=== PATIENT | male | born 1980 | race Hispanic/Latino ===

== ENCOUNTER 2021-01-14 05:29 | Emergency (ER) | payer OTHER ==
[2021-01-14 05:50] LABS: BASOPHILS % (AUTO) 0.4 % (0.0-5.0); HEMATOCRIT 42.6 % (42-54); LYMPHOCYTES % (AUTO) 32.7 % (21.0-51.0); MEAN CORPUSCULAR HEMOGLOBIN 34.2 pg (27.0-33.0); MEAN CORPUSCULAR HGB CONC 35.7 g/dL (32.0-36.0); MEAN CORPUSCULAR VOLUME 95.9 fL (79-99); NEUTROPHILS % (AUTO) 55.7 % (40.0-77.0); PLATELET COUNT (AUTO) 39 K/uL (130-400); RED BLOOD CELL COUNT(AUTO) 4.44 MIL/uL (4.50-6.20); RED CELL DISTRIBUTION WIDTH 12.9 % (11.0-15.5); WHITE BLOOD COUNT (AUTO) 4.7 K/uL (4.8-10.8)
[2021-01-14] MEDS ORDERED: ASPIRIN 325 MG TABLET ONE (06:00)
[2021-01-14 06:03] LABS: INR 1.36 (0.85-1.15); PROTHROMBIN TIME 14.4 SEC (9.6-11.6)
[2021-01-14 06:05] LABS: PARTIAL THROMBOPLASTIN TIME 31.3 SEC (26.3-35.5)
[2021-01-14 06:11] LABS: ALBUMIN 3.6 g/dL (3.5-5.0); BILIRUBIN,TOTAL 2.7 mg/dL (0.2-1.0); CREATININE 0.9 mg/dL (0.5-1.5); POTASSIUM 3.4 mmol/L (3.5-5.1); TOTAL PROTEIN, SERUM 9.1 g/dL (6.0-8.3)
[2021-01-14 06:19] LABS: APPEARANCE,URINE Clear (CLEAR); BILIRUBIN,URINE Negative (NEGATIVE); COLOR,URINE Yellow (YELLOW); GLUCOSE, URINE (UA) Negative (NEGATIVE); KETONES,URINE Negative (NEGATIVE); LEUKOCYTE ESTERASE ,URINE Negative (NEGATIVE); NITRATE,URINE Negative (NEGATIVE); OCCULT BLOOD,URINE Negative (NEGATIVE); PROTEIN,URINE Negative (NEGATIVE)
[2021-01-14 06:27] LABS: AMPHET/METH SCREEN,URINE NEGATIVE (NEGATIVE); BARBITURATE SCREEN, URINE NEGATIVE (NEGATIVE); BENZODIAZEPINES SCREEN,URINE NEGATIVE (NEGATIVE); CANNABINOID SCREEN,URINE NEGATIVE (NEGATIVE); COCAINE SCREEN,URINE POSITIVE (NEGATIVE); OPIATE SCREEN,URINE NEGATIVE (NEGATIVE); PHENCYCLIDINE SCREEN,URINE NEGATIVE (NEGATIVE)
== END 2021-01-14 07:20 | disposition home or self-care (01) ==
LOC: EDH 05:29
DX: R07.89 Other chest pain (principal); F14.10 Cocaine abuse, uncomplicated; F10.10 Alcohol abuse, uncomplicated; Z72.0 Tobacco use
CPT/HCPCS: 36415; 71045; 80053; 80305; 81003; 82550; 83690; 84484; 85025; 85610; 85730; 93005

== ENCOUNTER 2022-04-26 02:18 | Inpatient (IN) | payer OTHER ==
[~2022-04-26] VITALS: Ht 162.6 cm; Wt 82.5 kg
[2022-04-26 02:46] LABS: BASOPHILS % (AUTO) 0.4 % (0.0-5.0); EOSINOPHILS % (AUTO) 3.7 % (0.0-8.0); HEMATOCRIT 33.7 % (42-54); LYMPHOCYTES % (AUTO) 22.4 % (21.0-51.0); MEAN CORPUSCULAR HEMOGLOBIN 35.1 pg (27.0-33.0); MEAN CORPUSCULAR HGB CONC 34.7 g/dL (32.0-36.0); MEAN CORPUSCULAR VOLUME 101.2 fL (79-99); MONOCYTES % (AUTO) 7.9 % (3.0-13.0); RED BLOOD CELL COUNT(AUTO) 3.33 MIL/uL (4.50-6.20); RED CELL DISTRIBUTION WIDTH 14.6 % (11.0-15.5); WHITE BLOOD COUNT (AUTO) 5.4 K/uL (4.8-10.8)
[2022-04-26 02:47] LABS: APPEARANCE,URINE CLEAR (CLEAR); BILIRUBIN,URINE NEGATIVE (NEGATIVE); COLOR,URINE YELLOW (YELLOW); GLUCOSE, URINE (UA) NEGATIVE (NEGATIVE); KETONES,URINE NEGATIVE (NEGATIVE); LEUKOCYTE ESTERASE ,URINE NEGATIVE (NEGATIVE); NITRATE,URINE NEGATIVE (NEGATIVE); OCCULT BLOOD,URINE MODERATE (NEGATIVE); PH,URINE 6.5 (5.0-8.0); PROTEIN,URINE NEGATIVE (NEGATIVE); UROBILINOGEN,URINE >=8.0 mg/dL (0.2-1.0)
[2022-04-26 02:55] LABS: CREATININE 0.9 mg/dL (0.5-1.5); POTASSIUM 3.4 mmol/L (3.5-5.1)
[2022-04-26 02:57] LABS: INR 1.73 (0.85-1.15); PROTHROMBIN TIME 18.3 SEC (9.6-11.6)
[2022-04-26 03:00] LABS: ALBUMIN 2.2 g/dL (3.5-5.0); TOTAL PROTEIN, SERUM 7.6 g/dL (6.0-8.3)
[2022-04-26 03:02] LABS: BACTERIA,URINE None Seen /HPF (None Seen)
[2022-04-26 03:06] LABS: B-TYPE NATRIURETIC PEPTIDE 30 pg/mL (0-100)
[2022-04-26 03:10] LABS: PLATELET MORPHOLOGY COMMENT DECREASED
[2022-04-26 03:11] LABS: PLATELET COUNT (AUTO) 60 K/uL (130-400)
[2022-04-26] MEDS ORDERED: FUROSEMIDE 40MG VIAL IV ONE (03:30)
[2022-04-26] MEDS ORDERED: THIAMINE HCL 100 MG/ML 2ML VIAL IVP SCH (03:30)
[2022-04-26] MEDS ORDERED: LACTULOSE 20 GM/30 ML UDCUP PO ONE (03:30)
[2022-04-26] MEDS: LACTULOSE 20 GM/30 ML UDCUP PO SCH ×4 (04:49→22:20)
[2022-04-26] MEDS: KCL 20 MEQ ERTAB PO PRN (04:55)
[2022-04-26] MEDS ORDERED: LITHIUM CARBONATE 150 MG CAPSULE PO SCH ×2 (05:00→08:00)
[2022-04-26] MEDS ORDERED: FUROSEMIDE 40MG VIAL IV SCH (05:00)
[2022-04-26] MEDS ORDERED: POTASSIUM CHLORIDE 20MEQ/100ML 100 ML IV PRN (05:00)
[2022-04-26] MEDS ORDERED: ONDANSETRON 4MG INJ IV PRN (05:00)
[2022-04-26] MEDS ORDERED: POTASSIUM CHLORIDE 10% ELIXIR 20 MEQ/15 ML UDCUP PO PRN (05:00)
[2022-04-26] MEDS ORDERED: LIDOCAINE HCL-MPF 1% 2ML VIAL IV PRN (05:00)
[2022-04-26] MEDS ORDERED: PHARMACY COMMUNICATION MISC PRN (05:00)
[2022-04-26] MEDS ORDERED: DIAZEPAM 5 MG/ML 2 ML SYG IV PRN (05:00)
[2022-04-26 05:33] LABS: MAGNESIUM 2.1 mg/dL (1.80-2.40); PHOSPHORUS 2.2 mg/dL (2.5-4.9)
[2022-04-26] MEDS: FAMOTIDINE 20MG VIAL IV SCH ×2 (08:07→20:11)
[2022-04-26 13:10] VITALS: BP 133/70
[2022-04-26] MEDS: FUROSEMIDE 40MG VIAL IV SCH (15:34)
[2022-04-26 16:00] VITALS: BP_SYST 104; BP_SYST 146; BP_DIAS 65; BP_DIAS 85
[2022-04-26 20:00] VITALS: BP 120/73
[2022-04-27] VITALS: BP 121/61
[2022-04-27 04:00] VITALS: BP 122/64
[2022-04-27 04:29] LABS: BASOPHILS % (AUTO) 0.7 % (0.0-5.0); EOSINOPHILS % (AUTO) 4.3 % (0.0-8.0); LYMPHOCYTES % (AUTO) 28.8 % (21.0-51.0); MEAN CORPUSCULAR HGB CONC 34.5 g/dL (32.0-36.0); MEAN CORPUSCULAR VOLUME 101.3 fL (79-99); MONOCYTES % (AUTO) 9.4 % (3.0-13.0); NEUTROPHILS % (AUTO) 56.5 % (40.0-77.0); PLATELET COUNT (AUTO) 22 K/uL (130-400); RED BLOOD CELL COUNT(AUTO) 3.06 MIL/uL (4.50-6.20); RED CELL DISTRIBUTION WIDTH 14.4 % (11.0-15.5)
[2022-04-27] MEDS: FUROSEMIDE 40MG VIAL IV SCH (04:32)
[2022-04-27] MEDS: LACTULOSE 20 GM/30 ML UDCUP PO SCH ×2 (04:32→11:16)
[2022-04-27 04:38] LABS: CREATININE 0.9 mg/dL (0.5-1.5); POTASSIUM 3.1 mmol/L (3.5-5.1)
[2022-04-27] MEDS: KCL 20 MEQ ERTAB PO PRN ×3 (05:15→08:56)
[2022-04-27 07:59] VITALS: BP 113/73
[2022-04-27] MEDS ORDERED: FAMOTIDINE 20MG TAB PO SCH (09:00)
[2022-04-27] MEDS ORDERED: SPIRONOLACTONE 25 MG TAB PO SCH (09:00)
[2022-04-27] MEDS ORDERED: FUROSEMIDE 40 MG TABLET PO SCH (09:00)
[2022-04-27 11:48] VITALS: BP 122/69
[2022-04-27] MEDS ORDERED: SPIR25TA6 PO (14:40)
[2022-04-27] MEDS ORDERED: LACT PO (14:40)
[2022-04-27] MEDS ORDERED: FURO40TA7 PO (14:40)
== END 2022-04-27 16:45 | disposition home or self-care (01) | DRG 433 ==
LOC: EDH 02:18 → EDHIP 02:19 → INTOOBSV 02:19 → OBSVTOIN 02:19 → 4CH 12:14
PROVIDERS: ADMIT Internal Medicine; ATTEND Internal Medicine
DX: K70.31 Alcoholic cirrhosis of liver with ascites (principal); D68.9 Coagulation defect, unspecified; K70.40 Alcoholic hepatic failure without coma; F10.20 Alcohol dependence, uncomplicated; D69.6 Thrombocytopenia, unspecified; E87.6 Hypokalemia; E88.09 Other disorders of plasma-protein metabolism, not elsewhere classified; F17.210 Nicotine dependence, cigarettes, uncomplicated
CPT/HCPCS: 36415; 71045; 76700; 80048; 80053; 81001; 82140; 83735; 83880; 84100; 84484; 85025; 85610; 86850; 86900; 86901; 93005; G0378; J1940; J3411; J3490

== ENCOUNTER 2022-05-03 13:29 | Emergency (ER) | payer MEDICAID, OTHER ==
[~2022-05-03] VITALS: Ht 162.6 cm; Wt 82.1 kg
[~2022-05-03 13:29] MED LIST: FURO40TA7 PO; LACT PO; SPIR25TA6 PO
[2022-05-03] MEDS ORDERED: MORPHINE 2 MG SYG IVP ONE (14:00)
[2022-05-03] MEDS ORDERED: ONDANSETRON 4MG INJ IVP ONE (14:00)
[2022-05-03] MEDS ORDERED: 0.9%NACL 1000ML 1,000 ML IV SCH (14:00)
[2022-05-03] MEDS ORDERED: ACETAMINOPHEN 500 MG TABLET PO ONE (14:00)
[2022-05-03 14:05] LABS: BASOPHILS % (AUTO) 0.2 % (0.0-5.0); EOSINOPHILS % (AUTO) 0.1 % (0.0-8.0); HEMATOCRIT 38.1 % (42-54); LYMPHOCYTES % (AUTO) 7.6 % (21.0-51.0); MEAN CORPUSCULAR HEMOGLOBIN 35.1 pg (27.0-33.0); MEAN CORPUSCULAR HGB CONC 33.9 g/dL (32.0-36.0); MEAN CORPUSCULAR VOLUME 103.5 fL (79-99); MONOCYTES % (AUTO) 4.4 % (3.0-13.0); NEUTROPHILS % (AUTO) 86.7 % (40.0-77.0); PLATELET COUNT (AUTO) 35 K/uL (130-400); RED BLOOD CELL COUNT(AUTO) 3.68 MIL/uL (4.50-6.20); RED CELL DISTRIBUTION WIDTH 14.2 % (11.0-15.5); WHITE BLOOD COUNT (AUTO) 8.1 K/uL (4.8-10.8)
[2022-05-03 14:15] LABS: CREATININE 1.3 mg/dL (0.5-1.5); POTASSIUM 4.8 mmol/L (3.5-5.1)
[2022-05-03 14:20] LABS: ALBUMIN 2.2 g/dL (3.5-5.0); TOTAL PROTEIN, SERUM 8.1 g/dL (6.0-8.3)
[2022-05-03 14:50] LABS: APPEARANCE,URINE SL CLOUDY (CLEAR); BILIRUBIN,URINE MODERATE (NEGATIVE); COLOR,URINE DARK YELLOW (YELLOW); GLUCOSE, URINE (UA) 100 mg/dL (NEGATIVE); KETONES,URINE 5 mg/dL (NEGATIVE); LEUKOCYTE ESTERASE ,URINE TRACE (NEGATIVE); NITRATE,URINE POSITIVE (NEGATIVE); OCCULT BLOOD,URINE LARGE (NEGATIVE); PH,URINE 5.5 (5.0-8.0); PROTEIN,URINE 100 mg/dL (NEGATIVE)
[2022-05-03 14:58] LABS: PLATELET MORPHOLOGY COMMENT MARKED DECREASE
[2022-05-03 15:09] LABS: BACTERIA,URINE Moderate /HPF (None Seen); RBC,URINE 0-1 /HPF (0-1)
[2022-05-03 15:19] VITALS: BP 132/78
[2022-05-03] MEDS ORDERED: ONDA4TAB10 PO (15:19)
[2022-05-03] MEDS ORDERED: CEPH500B PO (15:19)
[2022-05-03] MEDS ORDERED: DICY20TA2 PO (15:19)
[2022-05-03] MEDS ORDERED: CEFTRIAXONE 1G VIAL IVP ONE (15:30)
== END 2022-05-03 15:40 | disposition home or self-care (01) ==
LOC: EDH 13:29
DX: N39.0 Urinary tract infection, site not specified (principal); K52.9 Noninfective gastroenteritis and colitis, unspecified; K74.60 Unspecified cirrhosis of liver
CPT/HCPCS: 99285; 74176; 96374; 71045; 96375; 84484; 80053; 83690; 85025; 87088; 81001; 36415; J7030; J0696; J2405

== ENCOUNTER 2022-06-03 00:09 | Emergency (ER) | payer OTHER ==
[~2022-06-03] VITALS: Ht 170.2 cm; Wt 92.5 kg
[~2022-06-03 00:09] MED LIST changes: +CEPH500B PO; +DICY20TA2 PO; +ONDA4TAB10 PO
[2022-06-03 00:58] LABS: BASOPHILS % (AUTO) 0.7 % (0.0-5.0); EOSINOPHILS % (AUTO) 3.6 % (0.0-8.0); HEMATOCRIT 28.3 % (42-54); LYMPHOCYTES % (AUTO) 24.5 % (21.0-51.0); MEAN CORPUSCULAR HEMOGLOBIN 34.6 pg (27.0-33.0); MEAN CORPUSCULAR HGB CONC 34.3 g/dL (32.0-36.0); MEAN CORPUSCULAR VOLUME 101.1 fL (79-99); MONOCYTES % (AUTO) 10.1 % (3.0-13.0); NEUTROPHILS % (AUTO) 59.3 % (40.0-77.0); PLATELET COUNT (AUTO) 34 K/uL (130-400); RED CELL DISTRIBUTION WIDTH 14.8 % (11.0-15.5); WHITE BLOOD COUNT (AUTO) 4.5 K/uL (4.8-10.8)
[2022-06-03 01:07] LABS: CREATININE 1.3 mg/dL (0.5-1.5); POTASSIUM 3.9 mmol/L (3.5-5.1)
[2022-06-03 01:09] LABS: APPEARANCE,URINE CLEAR (CLEAR); BILIRUBIN,URINE 2 mg/dL (NEGATIVE); COLOR,URINE DARK-YELLOW (YELLOW); GLUCOSE, URINE (UA) NEGATIVE (NEGATIVE); KETONES,URINE NEGATIVE (NEGATIVE); LEUKOCYTE ESTERASE ,URINE NEGATIVE Leu/uL (NEGATIVE); NITRATE,URINE NEGATIVE (NEGATIVE); OCCULT BLOOD,URINE SMALL (NEGATIVE); PH,URINE 5.5 (5.0-8.0); PROTEIN,URINE 10 mg/dL (NEGATIVE)
[2022-06-03 01:11] LABS: BACTERIA,URINE RARE /HPF (None Seen); HYALINE CASTS, URINE 26-50 /LPF (0-1 /LPF); MUCUS,URINE RARE LPF (None Seen); SQUAMOUS EPITHELIAL CELL,UR RARE /HPF (0-2)
[2022-06-03 01:11] LABS: ALBUMIN 1.8 g/dL (3.5-5.0); TOTAL PROTEIN, SERUM 6.8 g/dL (6.0-8.3)
[2022-06-03] MEDS ORDERED: FURO40TA7 PO (01:12)
[2022-06-03] MEDS ORDERED: SPIR25TA6 PO (01:12)
[2022-06-03] MEDS ORDERED: LACT10SO9 PO (01:12)
[2022-06-03 03:58] VITALS: BP 133/66
== END 2022-06-03 04:43 | disposition home or self-care (01) ==
LOC: EDH 00:09
DX: R18.8 Other ascites (principal); R17 Unspecified jaundice; Z79.899 Other long term (current) drug therapy
CPT/HCPCS: 36415; 80053; 81001; 82140; 83690; 85025

== ENCOUNTER 2022-11-02 07:27 | Emergency (ER) | payer BC, MEDICAID, OTHER ==
[~2022-11-02] VITALS: Ht 162.6 cm; Wt 88.5 kg
[~2022-11-02 07:27] MED LIST changes: -CEPH500B PO; -DICY20TA2 PO; +FURO20TA4 PO; -FURO40TA7 PO; -LACT PO; +LACT10SO9 PO; +SPIR100T5 PO; -SPIR25TA6 PO
[2022-11-02 08:19] LABS: BASOPHILS % (AUTO) 0.7 % (0.0-5.0); HEMATOCRIT 31.8 % (42-54); LYMPHOCYTES % (AUTO) 30.2 % (21.0-51.0); MEAN CORPUSCULAR HEMOGLOBIN 34.9 pg (27.0-33.0); MEAN CORPUSCULAR HGB CONC 32.4 g/dL (32.0-36.0); MEAN CORPUSCULAR VOLUME 107.8 fL (79-99); MONOCYTES % (AUTO) 7.7 % (3.0-13.0); NEUTROPHILS % (AUTO) 58.7 % (40.0-77.0); PLATELET COUNT (AUTO) 23 K/uL (130-400); RED BLOOD CELL COUNT(AUTO) 2.95 MIL/uL (4.50-6.20); RED CELL DISTRIBUTION WIDTH 15.9 % (11.0-15.5)
[2022-11-02 08:24] LABS: POTASSIUM 3.7 mmol/L (3.5-5.1)
[2022-11-02 08:26] LABS: INR 2.19 (0.85-1.15); PROTHROMBIN TIME 22.8 SEC (9.6-11.6)
[2022-11-02 08:30] LABS: APPEARANCE,URINE CLOUDY (CLEAR); BILIRUBIN,URINE 1 mg/dL (NEGATIVE); COLOR,URINE DARK-YELLOW (YELLOW); GLUCOSE, URINE (UA) NEGATIVE (NEGATIVE); KETONES,URINE NEGATIVE (NEGATIVE); LEUKOCYTE ESTERASE ,URINE NEGATIVE Leu/uL (NEGATIVE); NITRATE,URINE NEGATIVE (NEGATIVE); OCCULT BLOOD,URINE LARGE (NEGATIVE); PH,URINE 5.5 (5.0-8.0); PROTEIN,URINE 30 mg/dL (NEGATIVE); UROBILINOGEN,URINE 0.2 mg/dL (0.2-1.0)
[2022-11-02 08:31] LABS: ALBUMIN 1.8 g/dL (3.5-5.0); TOTAL PROTEIN, SERUM 7.8 g/dL (6.0-8.3)
[2022-11-02 08:38] LABS: BACTERIA,URINE RARE /HPF (None Seen); MUCUS,URINE MANY LPF (None Seen); OTHER CASTS, URINE 1 /LPF (None Seen); SQUAMOUS EPITHELIAL CELL,UR RARE /HPF (0-2)
[2022-11-02 08:39] LABS: AMPHET/METH SCREEN,URINE NEGATIVE (NEGATIVE); BARBITURATE SCREEN, URINE NEGATIVE (NEGATIVE); BENZODIAZEPINES SCREEN,URINE NEGATIVE (NEGATIVE); CANNABINOID SCREEN,URINE NEGATIVE (NEGATIVE); COCAINE SCREEN,URINE POSITIVE (NEGATIVE); OPIATE SCREEN,URINE NEGATIVE (NEGATIVE); PHENCYCLIDINE SCREEN,URINE NEGATIVE (NEGATIVE)
[2022-11-02 08:49] LABS: ALCOHOL, BLOOD 115 mg/dL (0-10)
[2022-11-02 08:56] LABS: EOSINOPHILS % (MANUAL) 1 % (1-6); LYMPHOCYTES % (MANUAL) 25 % (22-44); MAN.DIFF COMMENT-IMPRESSION MANUAL DIFFERENTIAL; MONOCYTES % (MANUAL) 5 % (2-9); SEGMENTED NEUTROPHILS % 69 % (40-70)
[2022-11-02 08:57] LABS: PLATELET MORPHOLOGY COMMENT MARKED DECREASE
[2022-11-02 08:58] LABS: ACETAMINOPHEN < 1 mcg/mL (10-29)
[2022-11-02] MEDS ORDERED: IOHEXOL 350 MG/ML 100ML INFUS..BTL IV ONE (09:29)
[2022-11-02] MEDS: MORPHINE 2 MG SYG IVP SCH (09:55)
[2022-11-02] MEDS: ONDANSETRON 4MG INJ IVP SCH (09:55)
[2022-11-02] MEDS ORDERED: CEPH500B PO (10:14)
[2022-11-02] MEDS ORDERED: OMEP40CA21 PO (10:20)
[2022-11-02] MEDS: CEFTRIAXONE 1G VIAL IVP ONE (11:05)
[2022-11-02] MEDS: LIDOCAINE HCL 2% VISCOUS 15 ML UDCUP PO ONE (11:05)
[2022-11-02] MEDS: MAG/ALUM/SIMETH 30 ML UDCUP PO ONE (11:05)
[2022-11-02 12:04] VITALS: BP 119/70
== END 2022-11-02 12:05 | disposition home or self-care (01) ==
LOC: EDH 07:27
DX: K74.60 Unspecified cirrhosis of liver (principal); N39.0 Urinary tract infection, site not specified; R10.13 Epigastric pain; F10.129 Alcohol abuse with intoxication, unspecified; F14.10 Cocaine abuse, uncomplicated; R31.9 Hematuria, unspecified; Z79.899 Other long term (current) drug therapy; Y90.5 Blood alcohol level of 100-119 mg/100 ml
CPT/HCPCS: 99284; 74177; 96374; 96375; 80053; 80305; 83690; 85025; 85610; 87088; 81001; 36415; J0696; J2405; Q9967

== ENCOUNTER 2023-02-14 11:13 | Inpatient (IN) | payer BC, OTHER ==
[~2023-02-14] VITALS: Ht 165.1 cm; Wt 100.2 kg
[~2023-02-14 11:13] MED LIST changes: +CEPH500B PO; +OMEP40CA21 PO
[2023-02-14 12:16] LABS: BASOPHILS % (AUTO) 0.3 % (0.0-5.0); EOSINOPHILS % (AUTO) 0.7 % (0.0-8.0); HEMATOCRIT 22.4 % (42-54); LYMPHOCYTES % (AUTO) 8.8 % (21.0-51.0); MEAN CORPUSCULAR HEMOGLOBIN 36.6 pg (27.0-33.0); MEAN CORPUSCULAR HGB CONC 33.5 g/dL (32.0-36.0); MEAN CORPUSCULAR VOLUME 109.3 fL (79-99); MONOCYTES % (AUTO) 4.5 % (3.0-13.0); NEUTROPHILS % (AUTO) 83.8 % (40.0-77.0); PLATELET COUNT (AUTO) 30 K/uL (130-400); RED BLOOD CELL COUNT(AUTO) 2.05 MIL/uL (4.50-6.20); WHITE BLOOD COUNT (AUTO) 6.8 K/uL (4.8-10.8)
[2023-02-14 12:22] LABS: POTASSIUM 3.2 mmol/L (3.5-5.1)
[2023-02-14 12:26] LABS: ALBUMIN 1.2 g/dL (3.5-5.0); TOTAL PROTEIN, SERUM 6.8 g/dL (6.0-8.3)
[2023-02-14] MEDS ORDERED: POTASSIUM BICARB/CIT AC 25 MEQ TABLET.EFF PO ONE (12:30)
[2023-02-14 12:51] LABS: PARTIAL THROMBOPLASTIN TIME 52.1 SEC (26.3-35.5)
[2023-02-14] MEDS ORDERED: HYDROCODONE/ACETAMINOPHEN 5/325 MG TAB PO PRN (13:30)
[2023-02-14] MEDS ORDERED: GUAIFENESIN-DM 200/20 MG 10 ML PO PRN (13:30)
[2023-02-14] MEDS ORDERED: CEFTRIAXONE 1G VIAL 2 GM in 0.9%NACL 100ML 100 ML IV SCH (13:30)
[2023-02-14] MEDS ORDERED: POTASSIUM CHLORIDE 10% ELIXIR 20 MEQ/15 ML UDCUP PO PRN (13:30)
[2023-02-14] MEDS ORDERED: ACETAMINOPHEN 325 MG TAB PO PRN (13:30)
[2023-02-14] MEDS ORDERED: LACTULOSE 20 GM/30 ML UDCUP PO PRN (13:30)
[2023-02-14] MEDS ORDERED: POTASSIUM CHLORIDE 20MEQ/100ML 100 ML IV PRN (13:30)
[2023-02-14] MEDS ORDERED: MAG/ALUM/SIMETH 30 ML UDCUP PO PRN (13:30)
[2023-02-14] MEDS ORDERED: ALBUMIN (HUMAN) 5% 250 ML IV SCH (13:30)
[2023-02-14] MEDS ORDERED: DiphenhydrAMINE HCL 50 MG/ML VIAL IV PRN (13:30)
[2023-02-14] MEDS ORDERED: ONDANSETRON 4MG INJ IV PRN (13:30)
[2023-02-14] MEDS ORDERED: MAGNESIUM 2GM PREMIX 50ML 50 ML IV PRN (13:30)
[2023-02-14] MEDS ORDERED: NITROGLYCERIN 0.4 MG SL TAB SL PRN (13:30)
[2023-02-14 13:49] LABS: INR 3.63 (0.85-1.15); PROTHROMBIN TIME 36.8 SEC (9.6-11.6)
[2023-02-14 13:56] LABS: PLATELET MORPHOLOGY COMMENT MARKED DECREASE
[2023-02-14] MEDS: HYDROMORPHONE 1 MG INJ IV PRN ×2 (14:31→18:45)
[2023-02-14 14:46] LABS: APPEARANCE,URINE CLOUDY (CLEAR); BILIRUBIN,URINE 6 mg/dL (NEGATIVE); COLOR,URINE DARK-YELLOW (YELLOW); GLUCOSE, URINE (UA) NEGATIVE (NEGATIVE); KETONES,URINE NEGATIVE (NEGATIVE); LEUKOCYTE ESTERASE ,URINE 250 Leu/uL (NEGATIVE); NITRATE,URINE NEGATIVE (NEGATIVE); OCCULT BLOOD,URINE LARGE (NEGATIVE); PH,URINE 5.5 (5.0-8.0); PROTEIN,URINE 20 mg/dL (NEGATIVE); UROBILINOGEN,URINE 3 mg/dL (0.2-1.0)
[2023-02-14 14:53] LABS: AMPHET/METH SCREEN,URINE NEGATIVE (NEGATIVE); BARBITURATE SCREEN, URINE NEGATIVE (NEGATIVE); BENZODIAZEPINES SCREEN,URINE NEGATIVE (NEGATIVE); CANNABINOID SCREEN,URINE NEGATIVE (NEGATIVE); COCAINE SCREEN,URINE POSITIVE (NEGATIVE); OPIATE SCREEN,URINE NEGATIVE (NEGATIVE); PHENCYCLIDINE SCREEN,URINE NEGATIVE (NEGATIVE)
[2023-02-14 15:11] LABS: BACTERIA,URINE MOD /HPF (None Seen); MUCUS,URINE RARE LPF (None Seen); OTHER CASTS, URINE 5 /LPF (None Seen); SQUAMOUS EPITHELIAL CELL,UR RARE /HPF (0-2); WBC,URINE 26-50 /HPF (0-1); YEAST,URINE BUDDING RARE /HPF (None Seen)
[2023-02-14] MEDS: LACTULOSE 20 GM/30 ML UDCUP PO SCH ×2 (15:19→21:15)
[2023-02-14] MEDS: SPIRONOLACTONE 25 MG TAB PO SCH ×2 (15:20→21:15)
[2023-02-14] MEDS ORDERED: CEFTRIAXONE 2GM VIAL IVPB SCH (15:30)
[2023-02-14] MEDS ORDERED: 0.9% NACL 500ML IV.SOLN 500 ML IV ONE (17:30)
[2023-02-14] MEDS: KCL 20 MEQ ERTAB PO PRN (21:15)
[2023-02-15] MEDS ORDERED: ZOSYN 3.375GM+NS 50ML 50 ML IVPB ONE (03:39)
[2023-02-15] MEDS: ZOSYN 3.375GM +NS 50ML IVPB SCH ×3 (03:55→22:21)
[2023-02-15] MEDS: HYDROMORPHONE 1 MG INJ IV PRN ×2 (03:56→09:31)
[2023-02-15 07:54] LABS: BASOPHILS % (AUTO) 0.2 % (0.0-5.0); LYMPHOCYTES % (AUTO) 9.5 % (21.0-51.0); MEAN CORPUSCULAR HEMOGLOBIN 36.7 pg (27.0-33.0); MEAN CORPUSCULAR HGB CONC 33.5 g/dL (32.0-36.0); MEAN CORPUSCULAR VOLUME 109.6 fL (79-99); MONOCYTES % (AUTO) 8.2 % (3.0-13.0); NEUTROPHILS % (AUTO) 77.1 % (40.0-77.0); NUCLEATED RED BLOOD CELLS 0.4 % (0.0-0.19); PLATELET COUNT (AUTO) 28 K/uL (130-400); RED BLOOD CELL COUNT(AUTO) 1.88 MIL/uL (4.50-6.20); RED CELL DISTRIBUTION WIDTH 16.1 % (11.0-15.5); WHITE BLOOD COUNT (AUTO) 5.6 K/uL (4.8-10.8)
[2023-02-15 08:12] LABS: HEMATOCRIT 20.6 % (42-54)
[2023-02-15 08:24] LABS: % IRON SATURATION 109.4 % (30-44)
[2023-02-15 08:26] LABS: ALBUMIN 1.3 g/dL (3.5-5.0); CREATININE 2.1 mg/dL (0.5-1.5); MAGNESIUM 1.7 mg/dL (1.80-2.40); POTASSIUM 3.4 mmol/L (3.5-5.1); THYROID STIMULATING HORMONE 6.42 uIU/mL (0.36-3.74); TOTAL PROTEIN, SERUM 6.2 g/dL (6.0-8.3)
[2023-02-15] MEDS: LACTULOSE 20 GM/30 ML UDCUP PO SCH ×2 (09:00→20:43)
[2023-02-15] MEDS: FUROSEMIDE 40 MG TABLET PO SCH (09:00)
[2023-02-15] MEDS: SPIRONOLACTONE 25 MG TAB PO SCH ×2 (09:00→20:43)
[2023-02-15] MEDS: MEROPENEM 1 GM VIAL IVPB SCH ×2 (09:04→20:43)
[2023-02-15] MEDS: KCL 20 MEQ ERTAB PO PRN ×2 (09:31→10:56)
[2023-02-15] MEDS: HYDROCODONE/ACETAMINOPHEN 5/325 MG TAB PO PRN ×2 (18:08→22:22)
[2023-02-15 21:01] LABS: HEMATOCRIT 20.5 % (42-54)
[2023-02-15 21:10] VITALS: BP 118/60
[2023-02-15 21:14] LABS: MAGNESIUM 1.8 mg/dL (1.80-2.40); POTASSIUM 3.4 mmol/L (3.5-5.1)
[2023-02-15 23:43] VITALS: BP 111/57
[2023-02-16 04:26] VITALS: BP 107/50
[2023-02-16] MEDS: ZOSYN 3.375GM +NS 50ML IVPB SCH (04:52)
[2023-02-16 06:16] LABS: BASOPHILS % (AUTO) 0.6 % (0.0-5.0); EOSINOPHILS % (AUTO) 3.4 % (0.0-8.0); HEMATOCRIT 22.4 % (42-54); LYMPHOCYTES % (AUTO) 7.8 % (21.0-51.0); MEAN CORPUSCULAR HEMOGLOBIN 35.4 pg (27.0-33.0); MEAN CORPUSCULAR HGB CONC 33.5 g/dL (32.0-36.0); MEAN CORPUSCULAR VOLUME 105.7 fL (79-99); MONOCYTES % (AUTO) 10.8 % (3.0-13.0); NEUTROPHILS % (AUTO) 71.3 % (40.0-77.0); NUCLEATED RED BLOOD CELLS 0.6 % (0.0-0.19); PLATELET COUNT (AUTO) 31 K/uL (130-400); RED BLOOD CELL COUNT(AUTO) 2.12 MIL/uL (4.50-6.20); RED CELL DISTRIBUTION WIDTH 20.8 % (11.0-15.5); WHITE BLOOD COUNT (AUTO) 5.3 K/uL (4.8-10.8)
[2023-02-16 06:34] LABS: ALBUMIN 1.2 g/dL (3.5-5.0); CREATININE 2.1 mg/dL (0.5-1.5); POTASSIUM 3.2 mmol/L (3.5-5.1); TOTAL PROTEIN, SERUM 5.7 g/dL (6.0-8.3)
[2023-02-16 08:00] VITALS: BP 108/54
[2023-02-16 08:41] LABS: RETICULOCYTE % (AUTO) 6.22 % (0.42-2.23)
[2023-02-16] MEDS: LACTULOSE 20 GM/30 ML UDCUP PO SCH ×2 (09:32→20:19)
[2023-02-16] MEDS: MEROPENEM 1 GM VIAL IVPB SCH ×2 (09:33→20:18)
[2023-02-16] MEDS: SPIRONOLACTONE 25 MG TAB PO SCH ×2 (09:33→20:18)
[2023-02-16] MEDS: FUROSEMIDE 40 MG TABLET PO SCH (09:34)
[2023-02-16] MEDS: HYDROCODONE/ACETAMINOPHEN 5/325 MG TAB PO PRN ×2 (09:39→20:31)
[2023-02-16] MEDS: ALBUMIN (HUMAN) 5% 250 ML IV SCH (11:46)
[2023-02-16 12:00] VITALS: BP 104/64
[2023-02-16 16:00] VITALS: BP 114/59
[2023-02-16 19:46] VITALS: BP 119/60
[2023-02-16 23:15] VITALS: BP 107/51
[2023-02-17 03:14] VITALS: BP 101/51
[2023-02-17 06:40] LABS: BASOPHILS % (AUTO) 0.6 % (0.0-5.0); EOSINOPHILS % (AUTO) 3.6 % (0.0-8.0); HEMATOCRIT 21.4 % (42-54); LYMPHOCYTES % (AUTO) 13.9 % (21.0-51.0); MEAN CORPUSCULAR HEMOGLOBIN 34.6 pg (27.0-33.0); MEAN CORPUSCULAR HGB CONC 33.6 g/dL (32.0-36.0); MEAN CORPUSCULAR VOLUME 102.9 fL (79-99); MONOCYTES % (AUTO) 15.2 % (3.0-13.0); NEUTROPHILS % (AUTO) 54.2 % (40.0-77.0); PLATELET COUNT (AUTO) 26 K/uL (130-400); RED BLOOD CELL COUNT(AUTO) 2.08 MIL/uL (4.50-6.20); RED CELL DISTRIBUTION WIDTH 20.1 % (11.0-15.5); WHITE BLOOD COUNT (AUTO) 5.1 K/uL (4.8-10.8)
[2023-02-17 07:23] LABS: ALBUMIN 1.2 g/dL (3.5-5.0); CREATININE 2.2 mg/dL (0.5-1.5); TOTAL PROTEIN, SERUM 5.6 g/dL (6.0-8.3)
[2023-02-17 07:26] LABS: POTASSIUM 2.9 mmol/L (3.5-5.1)
[2023-02-17 08:00] VITALS: BP 104/55
[2023-02-17] MEDS: HYDROCODONE/ACETAMINOPHEN 5/325 MG TAB PO PRN ×3 (08:05→21:10)
[2023-02-17] MEDS: SPIRONOLACTONE 25 MG TAB PO SCH ×2 (08:05→21:07)
[2023-02-17] MEDS: LACTULOSE 20 GM/30 ML UDCUP PO SCH ×2 (08:07→21:07)
[2023-02-17] MEDS: FUROSEMIDE 40 MG TABLET PO SCH (08:07)
[2023-02-17] MEDS: MEROPENEM 1 GM VIAL IVPB SCH ×2 (08:08→21:07)
[2023-02-17 08:44] LABS: BILIRUBIN,DIRECT 8.4 mg/dL (0.0-0.3)
[2023-02-17 11:43] VITALS: BP 124/73
[2023-02-17 16:00] VITALS: BP 124/75
[2023-02-17] MEDS: ALBUMIN (HUMAN) 5% 250 ML IV SCH (16:32)
[2023-02-17] MEDS: KCL 20 MEQ ERTAB PO PRN (18:38)
[2023-02-17 19:45] VITALS: BP 115/55
[2023-02-17 23:40] VITALS: BP 117/72
[2023-02-18] VITALS (21 sets, daily range): BP systolic 115–133; BP diastolic 61–85
[2023-02-18 03:27] LABS: BASOPHILS % (AUTO) 0.3 % (0.0-5.0); EOSINOPHILS % (AUTO) 3.4 % (0.0-8.0); LYMPHOCYTES % (AUTO) 12.1 % (21.0-51.0); MEAN CORPUSCULAR HEMOGLOBIN 34.8 pg (27.0-33.0); MEAN CORPUSCULAR HGB CONC 34.1 g/dL (32.0-36.0); MONOCYTES % (AUTO) 13.8 % (3.0-13.0); NEUTROPHILS % (AUTO) 55.4 % (40.0-77.0); NUCLEATED RED BLOOD CELLS 0.3 % (0.0-0.19); PLATELET COUNT (AUTO) 25 K/uL (130-400); RED BLOOD CELL COUNT(AUTO) 2.01 MIL/uL (4.50-6.20); RED CELL DISTRIBUTION WIDTH 20.4 % (11.0-15.5)
[2023-02-18 03:39] LABS: ALBUMIN 1.4 g/dL (3.5-5.0); CREATININE 1.9 mg/dL (0.5-1.5); PHOSPHORUS 3.1 mg/dL (2.5-4.9); POTASSIUM 3.1 mmol/L (3.5-5.1); TOTAL PROTEIN, SERUM 5.8 g/dL (6.0-8.3)
[2023-02-18 03:49] LABS: HEMATOCRIT 20.5 % (42-54)
[2023-02-18] MEDS ORDERED: POTASSIUM CHLORIDE 20 MEQ/100 ML BAG IV SCH (08:00)
[2023-02-18] MEDS: FUROSEMIDE 40 MG TABLET PO SCH (09:00)
[2023-02-18] MEDS: SPIRONOLACTONE 25 MG TAB PO SCH ×2 (09:00→20:56)
[2023-02-18] MEDS: LACTULOSE 20 GM/30 ML UDCUP PO SCH ×2 (09:00→20:56)
[2023-02-18] MEDS: MEROPENEM 1 GM VIAL IVPB SCH ×2 (09:34→20:56)
[2023-02-18] MEDS: POTASSIUM CHLORIDE IV SCH ×2 (10:38→14:00)
[2023-02-18] MEDS: NACL 0.9% IV SCH ×2 (10:38→14:00)
[2023-02-18] MEDS: HYDROMORPHONE 1 MG INJ IV PRN (11:25)
[2023-02-18 11:47] LABS: BASOPHILS % (AUTO) 0.5 % (0.0-5.0); EOSINOPHILS % (AUTO) 3.1 % (0.0-8.0); HEMATOCRIT 22.3 % (42-54); LYMPHOCYTES % (AUTO) 12.4 % (21.0-51.0); MEAN CORPUSCULAR HGB CONC 33.6 g/dL (32.0-36.0); MEAN CORPUSCULAR VOLUME 104.2 fL (79-99); NEUTROPHILS % (AUTO) 55.7 % (40.0-77.0); NUCLEATED RED BLOOD CELLS 0.5 % (0.0-0.19); PLATELET COUNT (AUTO) 43 K/uL (130-400); RED BLOOD CELL COUNT(AUTO) 2.14 MIL/uL (4.50-6.20); RED CELL DISTRIBUTION WIDTH 20.6 % (11.0-15.5); WHITE BLOOD COUNT (AUTO) 5.8 K/uL (4.8-10.8)
[2023-02-18 12:04] LABS: INR 1.99 (0.85-1.15); PROTHROMBIN TIME 20.9 SEC (9.6-11.6)
[2023-02-18 12:05] LABS: PARTIAL THROMBOPLASTIN TIME 45.8 SEC (26.3-35.5)
[2023-02-18] MEDS ORDERED: KETAMINE 50MG/ML SYRINGE 50 MG/ML DISP.SYRIN ONE (13:55)
[2023-02-18] MEDS ORDERED: PROPOFOL 10 MG/ML 20ML VIAL IV ONE (13:59)
[2023-02-18] MEDS: HYDROCODONE/ACETAMINOPHEN 5/325 MG TAB PO PRN (21:02)
[2023-02-19] VITALS: BP 114/68
[2023-02-19] MEDS: HYDROCODONE/ACETAMINOPHEN 5/325 MG TAB PO PRN (02:33)
[2023-02-19 04:00] VITALS: BP 125/62
[2023-02-19] MEDS: DIPHENHYDRAMINE HCL 25 MG CAPSULE PO PRN ×2 (04:04→19:56)
[2023-02-19 06:35] LABS: BASOPHILS % (AUTO) 0.8 % (0.0-5.0); EOSINOPHILS % (AUTO) 2.3 % (0.0-8.0); HEMATOCRIT 22.2 % (42-54); LYMPHOCYTES % (AUTO) 12.6 % (21.0-51.0); MEAN CORPUSCULAR HEMOGLOBIN 34.7 pg (27.0-33.0); MEAN CORPUSCULAR HGB CONC 33.3 g/dL (32.0-36.0); MEAN CORPUSCULAR VOLUME 104.2 fL (79-99); MONOCYTES % (AUTO) 11.8 % (3.0-13.0); NEUTROPHILS % (AUTO) 59.7 % (40.0-77.0); PLATELET COUNT (AUTO) 37 K/uL (130-400); RED BLOOD CELL COUNT(AUTO) 2.13 MIL/uL (4.50-6.20); RED CELL DISTRIBUTION WIDTH 20.8 % (11.0-15.5); WHITE BLOOD COUNT (AUTO) 6.2 K/uL (4.8-10.8)
[2023-02-19 06:57] LABS: ALBUMIN 1.6 g/dL (3.5-5.0); CREATININE 1.5 mg/dL (0.5-1.5); POTASSIUM 3.7 mmol/L (3.5-5.1); TOTAL PROTEIN, SERUM 6.1 g/dL (6.0-8.3)
[2023-02-19 08:00] VITALS: BP 123/76
[2023-02-19] MEDS: LACTULOSE 20 GM/30 ML UDCUP PO SCH ×2 (09:39→19:56)
[2023-02-19] MEDS: MEROPENEM 1 GM VIAL IVPB SCH ×2 (09:40→19:56)
[2023-02-19] MEDS: FUROSEMIDE 40 MG TABLET PO SCH (09:40)
[2023-02-19] MEDS: KCL 20 MEQ ERTAB PO PRN ×2 (09:40→12:44)
[2023-02-19] MEDS: SPIRONOLACTONE 25 MG TAB PO SCH ×2 (09:40→19:56)
[2023-02-19 12:00] VITALS: BP 113/58
[2023-02-19 16:00] VITALS: BP 129/68
[2023-02-19 20:00] VITALS: BP 118/64
[2023-02-19] MEDS: ACETAMINOPHEN 325 MG TAB PO PRN (22:13)
[2023-02-20] VITALS (7 sets, daily range): BP systolic 113–137; BP diastolic 58–74
[2023-02-20] MEDS: ACETAMINOPHEN 325 MG TAB PO PRN ×2 (03:36→11:47)
[2023-02-20 05:23] LABS: BASOPHILS % (AUTO) 0.7 % (0.0-5.0); EOSINOPHILS % (AUTO) 2.7 % (0.0-8.0); HEMATOCRIT 22.5 % (42-54); LYMPHOCYTES % (AUTO) 19.6 % (21.0-51.0); MEAN CORPUSCULAR HGB CONC 33.8 g/dL (32.0-36.0); MEAN CORPUSCULAR VOLUME 103.7 fL (79-99); MONOCYTES % (AUTO) 10.5 % (3.0-13.0); NEUTROPHILS % (AUTO) 55.4 % (40.0-77.0); NUCLEATED RED BLOOD CELLS 0.4 % (0.0-0.19); PLATELET COUNT (AUTO) 38 K/uL (130-400); RED BLOOD CELL COUNT(AUTO) 2.17 MIL/uL (4.50-6.20); RED CELL DISTRIBUTION WIDTH 20.9 % (11.0-15.5); WHITE BLOOD COUNT (AUTO) 5.6 K/uL (4.8-10.8)
[2023-02-20 05:54] LABS: ALBUMIN 1.5 g/dL (3.5-5.0); CREATININE 1.2 mg/dL (0.5-1.5); POTASSIUM 3.9 mmol/L (3.5-5.1); TOTAL PROTEIN, SERUM 6.3 g/dL (6.0-8.3)
[2023-02-20] MEDS: MEROPENEM 1 GM VIAL IVPB SCH (07:52)
[2023-02-20] MEDS: SPIRONOLACTONE 25 MG TAB PO SCH ×2 (07:52→20:09)
[2023-02-20] MEDS: LACTULOSE 20 GM/30 ML UDCUP PO SCH ×2 (07:53→20:09)
[2023-02-20] MEDS: FUROSEMIDE 40 MG TABLET PO SCH (07:53)
[2023-02-20] MEDS ORDERED: VANCOMYCIN PROTOCOL PER PHARMACY IV SCH (10:00)
[2023-02-20] MEDS ORDERED: VANCOMYCIN 2GM/500 ML BAG 500 ML IV ONE ×2 (11:00)
[2023-02-20] MEDS ORDERED: HYDROMORPHONE 0.5 MG SYG (0.5MG/0.5ML) IVP PRN (13:30)
[2023-02-20] MEDS: HYDROCODONE/ACETAMINOPHEN 10/325 MG TAB PO PRN ×2 (13:58→20:09)
[2023-02-20] MEDS: CEFAZOLIN SODIUM 2 GM VIAL IVPB SCH (18:26)
[2023-02-20] MEDS: DIPHENHYDRAMINE HCL 25 MG CAPSULE PO PRN (20:08)
[2023-02-20] MEDS: VANCOMYCIN 1.5 GM/250 ML BAG 250 ML IV SCH (22:54)
[2023-02-21] MEDS: CEFAZOLIN SODIUM 2 GM VIAL IVPB SCH ×4 (01:01→23:36)
[2023-02-21] MEDS: HYDROCODONE/ACETAMINOPHEN 10/325 MG TAB PO PRN ×3 (03:16→23:16)
[2023-02-21 03:48] VITALS: BP 123/75
[2023-02-21 05:24] LABS: BASOPHILS % (AUTO) 0.5 % (0.0-5.0); EOSINOPHILS % (AUTO) 2.8 % (0.0-8.0); HEMATOCRIT 21.3 % (42-54); LYMPHOCYTES % (AUTO) 14.1 % (21.0-51.0); MEAN CORPUSCULAR HEMOGLOBIN 35.6 pg (27.0-33.0); MEAN CORPUSCULAR HGB CONC 33.8 g/dL (32.0-36.0); MEAN CORPUSCULAR VOLUME 105.4 fL (79-99); MONOCYTES % (AUTO) 10.8 % (3.0-13.0); NEUTROPHILS % (AUTO) 64.2 % (40.0-77.0); PLATELET COUNT (AUTO) 29 K/uL (130-400); RED BLOOD CELL COUNT(AUTO) 2.02 MIL/uL (4.50-6.20); RED CELL DISTRIBUTION WIDTH 20.6 % (11.0-15.5); WHITE BLOOD COUNT (AUTO) 4.3 K/uL (4.8-10.8)
[2023-02-21 07:55] VITALS: BP 132/72
[2023-02-21] MEDS: FUROSEMIDE 40 MG TABLET PO SCH (08:58)
[2023-02-21] MEDS: SPIRONOLACTONE 25 MG TAB PO SCH ×2 (08:58→21:35)
[2023-02-21] MEDS: LACTULOSE 20 GM/30 ML UDCUP PO SCH ×2 (08:58→21:34)
[2023-02-21] MEDS: HYDROCODONE/ACETAMINOPHEN 5/325 MG TAB PO PRN (08:59)
[2023-02-21] MEDS: VANCOMYCIN 1.5 GM/250 ML BAG 250 ML IV SCH ×2 (11:03→22:21)
[2023-02-21 12:00] VITALS: BP 138/87
[2023-02-21 16:00] VITALS: BP 134/73
[2023-02-21] MEDS ORDERED: PHYTONADIONE IVPB ONE (16:00)
[2023-02-21] MEDS ORDERED: [UNRECOGNIZED DRUG - OTHER] IVPB ONE (16:00)
[2023-02-21 20:01] VITALS: BP 132/75
[2023-02-21] MEDS: DIPHENHYDRAMINE HCL 25 MG CAPSULE PO PRN (21:34)
[2023-02-21 23:24] VITALS: BP 152/87
[2023-02-22] VITALS (21 sets, daily range): BP systolic 116–138; BP diastolic 62–82
[2023-02-22 06:05] LABS: BASOPHILS % (AUTO) 0.4 % (0.0-5.0); EOSINOPHILS % (AUTO) 1.2 % (0.0-8.0); HEMATOCRIT 22.1 % (42-54); LYMPHOCYTES % (AUTO) 11.9 % (21.0-51.0); MEAN CORPUSCULAR HEMOGLOBIN 34.6 pg (27.0-33.0); MEAN CORPUSCULAR HGB CONC 32.6 g/dL (32.0-36.0); MEAN CORPUSCULAR VOLUME 106.3 fL (79-99); MONOCYTES % (AUTO) 8.8 % (3.0-13.0); NEUTROPHILS % (AUTO) 72.1 % (40.0-77.0); PLATELET COUNT (AUTO) 24 K/uL (130-400); RED BLOOD CELL COUNT(AUTO) 2.08 MIL/uL (4.50-6.20); RED CELL DISTRIBUTION WIDTH 20.4 % (11.0-15.5); WHITE BLOOD COUNT (AUTO) 5.1 K/uL (4.8-10.8)
[2023-02-22 06:13] LABS: INR 2.37 (0.85-1.15); PROTHROMBIN TIME 24.6 SEC (9.6-11.6)
[2023-02-22 06:47] LABS: ALBUMIN 1.5 g/dL (3.5-5.0); CREATININE 1.2 mg/dL (0.5-1.5); POTASSIUM 3.8 mmol/L (3.5-5.1); TOTAL PROTEIN, SERUM 6.5 g/dL (6.0-8.3)
[2023-02-22] MEDS: FUROSEMIDE 40MG VIAL IV SCH (08:17)
[2023-02-22] MEDS: LACTULOSE 20 GM/30 ML UDCUP PO SCH ×2 (08:18→23:28)
[2023-02-22] MEDS: SPIRONOLACTONE 25 MG TAB PO SCH ×2 (08:18→23:27)
[2023-02-22] MEDS: CEFAZOLIN SODIUM 2 GM VIAL IVPB SCH ×2 (09:06→16:57)
[2023-02-22] MEDS: HYDROCODONE/ACETAMINOPHEN 5/325 MG TAB PO PRN (09:06)
[2023-02-22] MEDS ORDERED: VANCOMYCIN 1.5 GM/250 ML BAG 250 ML IV SCH (12:30)
[2023-02-22] MEDS ORDERED: VANCOMYCIN 1G/250ML KIT 250 ML IV SCH ×2 (12:30)
[2023-02-22] MEDS ORDERED: COMPOUND IV REFRIGERATED 1 EACH IVSOLN MISC PRN (14:00)
[2023-02-22] MEDS ORDERED: SUCCINYLCHOLINE 200MG/10ML SYR ONE (18:34)
[2023-02-22] MEDS ORDERED: DEXAMETHASONE SOD PHOSPHATE 10MG/ML 1ML VIAL ONE (18:34)
[2023-02-22] MEDS ORDERED: LIDOCAINE PF 100MG/5ML (2%) SYRINGE 5ML ONE (18:34)
[2023-02-22] MEDS ORDERED: ONDANSETRON 4MG INJ ONE (18:35)
[2023-02-22] MEDS ORDERED: GLYCOPYRROLATE 1 MG/5 ML SYRINGE ONE (18:35)
[2023-02-22] MEDS ORDERED: ROCURONIUM 10MG/1ML SYR 10 MG/ML ML ONE (18:35)
[2023-02-22] MEDS ORDERED: PROPOFOL 10 MG/ML 20ML VIAL IV ONE (18:35)
[2023-02-22] MEDS ORDERED: MIDAZOLAM HCL 1 MG/ML 2ML VIAL ONE (18:35)
[2023-02-22] MEDS ORDERED: NEOSTIGMINE 5MG/5ML SYR IV ONE (18:35)
[2023-02-22] MEDS ORDERED: FENTANYL CITRATE PF 50 MCG/1 ML 2ML VIAL ONE (18:36)
[2023-02-22] MEDS ORDERED: ALBUMIN (HUMAN) 5% 250 ML IV ONE (20:36)
[2023-02-22] MEDS ORDERED: DIATR MEGLU/DIATRIZOATE SODIUM 30 ML BOTTLE ONE (21:44)
[2023-02-23] VITALS (10 sets, daily range): BP systolic 108–125; BP diastolic 57–74
[2023-02-23] MEDS: CEFAZOLIN SODIUM 2 GM VIAL IVPB SCH ×2 (00:37→09:50)
[2023-02-23] MEDS: HYDROCODONE/ACETAMINOPHEN 10/325 MG TAB PO PRN ×2 (05:25→20:11)
[2023-02-23 06:00] LABS: HEMATOCRIT 23.4 % (42-54); MEAN CORPUSCULAR HGB CONC 33.3 g/dL (32.0-36.0); MEAN CORPUSCULAR VOLUME 104.9 fL (79-99); PLATELET COUNT (AUTO) 18 K/uL (130-400); RED BLOOD CELL COUNT(AUTO) 2.23 MIL/uL (4.50-6.20); RED CELL DISTRIBUTION WIDTH 19.9 % (11.0-15.5); WHITE BLOOD COUNT (AUTO) 5.3 K/uL (4.8-10.8)
[2023-02-23 06:24] LABS: CREATININE 1.4 mg/dL (0.5-1.5); POTASSIUM 4.8 mmol/L (3.5-5.1)
[2023-02-23] MEDS: LACTULOSE 20 GM/30 ML UDCUP PO SCH ×2 (09:50→20:11)
[2023-02-23] MEDS: SPIRONOLACTONE 25 MG TAB PO SCH ×2 (09:50→20:11)
[2023-02-23] MEDS: FUROSEMIDE 40MG VIAL IV SCH (09:51)
[2023-02-23] MEDS ORDERED: VANCOMYCIN 1.5 GM/250 ML BAG 250 ML IV SCH (14:00)
[2023-02-23] MEDS: CEFTRIAXONE 2GM VIAL IVPB SCH (14:22)
[2023-02-24 04:15] VITALS: BP 107/65
[2023-02-24 05:56] LABS: LYMPHOCYTES % (AUTO) 6.1 % (21.0-51.0); MEAN CORPUSCULAR HEMOGLOBIN 35.5 pg (27.0-33.0); MEAN CORPUSCULAR HGB CONC 33.7 g/dL (32.0-36.0); MEAN CORPUSCULAR VOLUME 105.4 fL (79-99); MONOCYTES % (AUTO) 4.8 % (3.0-13.0); NEUTROPHILS % (AUTO) 84.2 % (40.0-77.0); PLATELET COUNT (AUTO) 18 K/uL (130-400); RED BLOOD CELL COUNT(AUTO) 1.86 MIL/uL (4.50-6.20); RED CELL DISTRIBUTION WIDTH 19.6 % (11.0-15.5); WHITE BLOOD COUNT (AUTO) 7.8 K/uL (4.8-10.8)
[2023-02-24 06:02] LABS: HEMATOCRIT 19.6 % (42-54)
[2023-02-24 06:19] LABS: ALBUMIN 1.4 g/dL (3.5-5.0); CREATININE 1.7 mg/dL (0.5-1.5); POTASSIUM 4.4 mmol/L (3.5-5.1)
[2023-02-24 07:04] LABS: HEMATOCRIT 19.7 % (42-54)
[2023-02-24 08:00] VITALS: BP 118/70
[2023-02-24] MEDS: LACTULOSE 20 GM/30 ML UDCUP PO SCH ×2 (08:22→21:34)
[2023-02-24] MEDS: FUROSEMIDE 40MG VIAL IV SCH (08:22)
[2023-02-24] MEDS: SPIRONOLACTONE 25 MG TAB PO SCH ×2 (08:22→21:34)
[2023-02-24 12:00] VITALS: BP 130/66
[2023-02-24] MEDS: CEFTRIAXONE 2GM VIAL IVPB SCH (14:18)
[2023-02-24 16:00] VITALS: BP 125/70
[2023-02-24 16:51] LABS: HEMATOCRIT 24.7 % (42-54)
[2023-02-24] MEDS: HYDROCODONE/ACETAMINOPHEN 10/325 MG TAB PO PRN (19:18)
[2023-02-24 19:40] VITALS: BP 127/74
[2023-02-24 23:40] VITALS: BP 119/66
[2023-02-25 03:35] VITALS: BP 127/77
[2023-02-25] MEDS: HYDROCODONE/ACETAMINOPHEN 10/325 MG TAB PO PRN ×2 (03:57→14:00)
[2023-02-25 04:12] LABS: BASOPHILS % (AUTO) 0.1 % (0.0-5.0); LYMPHOCYTES % (AUTO) 7.8 % (21.0-51.0); MEAN CORPUSCULAR HEMOGLOBIN 34.8 pg (27.0-33.0); MEAN CORPUSCULAR HGB CONC 34.3 g/dL (32.0-36.0); MEAN CORPUSCULAR VOLUME 101.3 fL (79-99); MONOCYTES % (AUTO) 7.1 % (3.0-13.0); NEUTROPHILS % (AUTO) 80.7 % (40.0-77.0); PLATELET COUNT (AUTO) 23 K/uL (130-400); RED BLOOD CELL COUNT(AUTO) 2.27 MIL/uL (4.50-6.20); RED CELL DISTRIBUTION WIDTH 21.8 % (11.0-15.5); WHITE BLOOD COUNT (AUTO) 8.9 K/uL (4.8-10.8)
[2023-02-25 04:42] LABS: ALBUMIN 1.5 g/dL (3.5-5.0); CREATININE 1.4 mg/dL (0.5-1.5); MAGNESIUM 2.2 mg/dL (1.80-2.40); POTASSIUM 4.3 mmol/L (3.5-5.1); TOTAL PROTEIN, SERUM 6.7 g/dL (6.0-8.3)
[2023-02-25 08:00] VITALS: BP 116/68
[2023-02-25] MEDS: LACTULOSE 20 GM/30 ML UDCUP PO SCH ×2 (09:33→21:00)
[2023-02-25] MEDS: SPIRONOLACTONE 25 MG TAB PO SCH ×2 (09:36→21:14)
[2023-02-25] MEDS: FUROSEMIDE 40MG VIAL IV SCH (09:37)
[2023-02-25 11:46] VITALS: BP 122/72
[2023-02-25] MEDS: CEFTRIAXONE 2GM VIAL IVPB SCH (13:20)
[2023-02-25 16:00] VITALS: BP 123/64
[2023-02-25 19:00] VITALS: BP 130/61
[2023-02-25] MEDS: DIPHENHYDRAMINE HCL 25 MG CAPSULE PO PRN (21:14)
[2023-02-25] MEDS: ACETAMINOPHEN 325 MG TAB PO PRN (21:14)
[2023-02-25 23:00] VITALS: BP 131/71
[2023-02-26] MEDS: DIPHENHYDRAMINE HCL 25 MG CAPSULE PO PRN (01:35)
[2023-02-26] MEDS: ACETAMINOPHEN 325 MG TAB PO PRN ×3 (01:35→21:09)
[2023-02-26 05:00] VITALS: BP 116/60
[2023-02-26 05:12] LABS: BASOPHILS % (AUTO) 0.2 % (0.0-5.0); EOSINOPHILS % (AUTO) 0.2 % (0.0-8.0); LYMPHOCYTES % (AUTO) 10.6 % (21.0-51.0); MEAN CORPUSCULAR HEMOGLOBIN 35.1 pg (27.0-33.0); MEAN CORPUSCULAR HGB CONC 34.1 g/dL (32.0-36.0); MONOCYTES % (AUTO) 10.6 % (3.0-13.0); NEUTROPHILS % (AUTO) 76.3 % (40.0-77.0); PLATELET COUNT (AUTO) 19 K/uL (130-400); RED BLOOD CELL COUNT(AUTO) 2.02 MIL/uL (4.50-6.20); RED CELL DISTRIBUTION WIDTH 21.7 % (11.0-15.5); WHITE BLOOD COUNT (AUTO) 5.7 K/uL (4.8-10.8)
[2023-02-26 05:36] LABS: ALBUMIN 1.4 g/dL (3.5-5.0); CREATININE 1.2 mg/dL (0.5-1.5); MAGNESIUM 2.1 mg/dL (1.80-2.40); PHOSPHORUS 3.9 mg/dL (2.5-4.9); POTASSIUM 4.4 mmol/L (3.5-5.1)
[2023-02-26 05:49] LABS: HEMATOCRIT 20.8 % (42-54)
[2023-02-26 08:00] VITALS: BP 117/64
[2023-02-26] MEDS: SPIRONOLACTONE 25 MG TAB PO SCH ×2 (09:55→21:08)
[2023-02-26] MEDS: FUROSEMIDE 40MG VIAL IV SCH ×3 (09:56→21:08)
[2023-02-26] MEDS: LACTULOSE 20 GM/30 ML UDCUP PO SCH ×2 (09:56→21:07)
[2023-02-26 11:45] VITALS: BP 129/71
[2023-02-26] MEDS: CEFTRIAXONE 2GM VIAL IVPB SCH (12:25)
[2023-02-26] MEDS: TRAMADOL /APAP 37.5MG/325MG TAB PO PRN ×3 (13:11→23:58)
[2023-02-26 16:00] VITALS: BP 132/60
[2023-02-26 20:00] VITALS: BP 138/73
[2023-02-27 05:00] VITALS: BP 123/77
[2023-02-27 05:48] LABS: EOSINOPHILS % (AUTO) 2.3 % (0.0-8.0); LYMPHOCYTES % (AUTO) 11.3 % (21.0-51.0); MEAN CORPUSCULAR HEMOGLOBIN 34.7 pg (27.0-33.0); MEAN CORPUSCULAR HGB CONC 32.6 g/dL (32.0-36.0); MEAN CORPUSCULAR VOLUME 106.5 fL (79-99); MONOCYTES % (AUTO) 9.4 % (3.0-13.0); NEUTROPHILS % (AUTO) 74.9 % (40.0-77.0); PLATELET COUNT (AUTO) 19 K/uL (130-400); RED BLOOD CELL COUNT(AUTO) 2.16 MIL/uL (4.50-6.20); RED CELL DISTRIBUTION WIDTH 21.9 % (11.0-15.5); WHITE BLOOD COUNT (AUTO) 6.6 K/uL (4.8-10.8)
[2023-02-27 05:58] LABS: ALBUMIN 1.5 g/dL (3.5-5.0); CREATININE 1.3 mg/dL (0.5-1.5); POTASSIUM 4.3 mmol/L (3.5-5.1); TOTAL PROTEIN, SERUM 6.3 g/dL (6.0-8.3)
[2023-02-27] MEDS: TRAMADOL /APAP 37.5MG/325MG TAB PO PRN ×3 (06:45→19:22)
[2023-02-27 08:00] VITALS: BP 147/70
[2023-02-27] MEDS: SPIRONOLACTONE 25 MG TAB PO SCH ×2 (10:30→20:51)
[2023-02-27] MEDS: LACTULOSE 20 GM/30 ML UDCUP PO SCH ×2 (10:31→20:52)
[2023-02-27] MEDS: FUROSEMIDE 40MG VIAL IV SCH ×2 (10:31→20:51)
[2023-02-27] MEDS ORDERED: PHYTONADIONE 10 MG/1 ML AMP SQ SCH (12:00)
[2023-02-27 12:42] VITALS: BP 129/80
[2023-02-27] MEDS ORDERED: PHYTONADIONE 10 MG/1 ML AMP SQ ONE (13:00)
[2023-02-27] MEDS: CEFTRIAXONE 2GM VIAL IVPB SCH (13:19)
[2023-02-27 16:00] VITALS: BP 136/77
[2023-02-27 19:00] VITALS: BP 128/77
[2023-02-27 23:00] VITALS: BP 123/70
[2023-02-28] MEDS: TRAMADOL /APAP 37.5MG/325MG TAB PO PRN ×3 (01:03→17:30)
[2023-02-28 05:00] VITALS: BP 124/69
[2023-02-28 06:16] LABS: BASOPHILS % (AUTO) 0.2 % (0.0-5.0); EOSINOPHILS % (AUTO) 3.8 % (0.0-8.0); HEMATOCRIT 22.6 % (42-54); LYMPHOCYTES % (AUTO) 14.2 % (21.0-51.0); MEAN CORPUSCULAR HEMOGLOBIN 34.7 pg (27.0-33.0); MEAN CORPUSCULAR HGB CONC 32.7 g/dL (32.0-36.0); MEAN CORPUSCULAR VOLUME 106.1 fL (79-99); MONOCYTES % (AUTO) 9.4 % (3.0-13.0); NEUTROPHILS % (AUTO) 70.1 % (40.0-77.0); PLATELET COUNT (AUTO) 20 K/uL (130-400); RED BLOOD CELL COUNT(AUTO) 2.13 MIL/uL (4.50-6.20); RED CELL DISTRIBUTION WIDTH 21.4 % (11.0-15.5); WHITE BLOOD COUNT (AUTO) 6.1 K/uL (4.8-10.8)
[2023-02-28 06:22] LABS: INR 2.14 (0.85-1.15); PROTHROMBIN TIME 23.6 SEC (9.6-11.6)
[2023-02-28 06:24] LABS: PARTIAL THROMBOPLASTIN TIME 42.1 SEC (26.3-35.5)
[2023-02-28 06:54] LABS: ALBUMIN 1.5 g/dL (3.5-5.0); CREATININE 1.3 mg/dL (0.5-1.5); POTASSIUM 4.3 mmol/L (3.5-5.1); TOTAL PROTEIN, SERUM 6.5 g/dL (6.0-8.3)
[2023-02-28 08:00] VITALS: BP 129/73
[2023-02-28] MEDS: SPIRONOLACTONE 25 MG TAB PO SCH ×2 (09:34→20:08)
[2023-02-28] MEDS: FUROSEMIDE 40MG VIAL IV SCH ×2 (09:34→20:07)
[2023-02-28] MEDS: LACTULOSE 20 GM/30 ML UDCUP PO SCH ×2 (09:34→20:06)
[2023-02-28 12:00] VITALS: BP 126/71
[2023-02-28] MEDS: LEVOFLOXACIN 750 MG TABLET PO SCH (13:35)
[2023-02-28 16:00] VITALS: BP 120/63
[2023-02-28] MEDS ORDERED: ALBUMIN (HUMAN) 25% 200 ML IV SCH ×2 (16:00→17:30)
[2023-02-28 17:40] LABS: BODY FLUID RBC 886 /cu. mm.; BODY FLUID WBC 148 /cu. mm.
[2023-02-28 17:43] LABS: APPEARANCE BODY FLUID CLOUDY (CLEAR); COLOR,BODY FLUID YELLOW (LT YELLOW); SPECIMENTYPE,BODY FLUID ASCITES; TOTAL VOLUME,BODY FLUID 4400 mL
[2023-02-28 18:27] LABS: BF EOSINOPHIL 1 %; BF LYMPHOCYTE 36 %; BF MONOCYTE 2 %
[2023-02-28 20:09] VITALS: BP 126/69
[2023-02-28 23:44] VITALS: BP 117/63
[2023-03-01] MEDS: TRAMADOL /APAP 37.5MG/325MG TAB PO PRN ×3 (01:32→20:20)
[2023-03-01 04:01] VITALS: BP 112/54
[2023-03-01 05:53] LABS: EOSINOPHILS % (AUTO) 2.2 % (0.0-8.0); HEMATOCRIT 21.1 % (42-54); LYMPHOCYTES % (AUTO) 11.4 % (21.0-51.0); MEAN CORPUSCULAR HEMOGLOBIN 34.9 pg (27.0-33.0); MEAN CORPUSCULAR HGB CONC 31.8 g/dL (32.0-36.0); MEAN CORPUSCULAR VOLUME 109.9 fL (79-99); MONOCYTES % (AUTO) 9.8 % (3.0-13.0); NEUTROPHILS % (AUTO) 74.6 % (40.0-77.0); PLATELET COUNT (AUTO) 24 K/uL (130-400); RED BLOOD CELL COUNT(AUTO) 1.92 MIL/uL (4.50-6.20); RED CELL DISTRIBUTION WIDTH 21.5 % (11.0-15.5); WHITE BLOOD COUNT (AUTO) 4.9 K/uL (4.8-10.8)
[2023-03-01 06:21] LABS: ALBUMIN 1.9 g/dL (3.5-5.0); BILIRUBIN,DIRECT 4.3 mg/dL (0.0-0.3); CREATININE 1.2 mg/dL (0.5-1.5); POTASSIUM 4.4 mmol/L (3.5-5.1)
[2023-03-01 08:00] VITALS: BP 121/67
[2023-03-01] MEDS: FUROSEMIDE 40MG VIAL IV SCH ×2 (09:36→20:20)
[2023-03-01] MEDS: LACTULOSE 20 GM/30 ML UDCUP PO SCH ×2 (09:37→20:19)
[2023-03-01] MEDS: SPIRONOLACTONE 25 MG TAB PO SCH ×2 (09:37→20:20)
[2023-03-01 12:00] VITALS: BP 125/70
[2023-03-01] MEDS: LEVOFLOXACIN 750 MG TABLET PO SCH (12:50)
[2023-03-01 16:00] VITALS: BP_SYST 120; BP_SYST 98; BP_DIAS 45; BP_DIAS 77
[2023-03-01 17:28] LABS: HEMATOCRIT 24.3 % (42-54)
[2023-03-01 19:45] VITALS: BP 112/59
[2023-03-01 23:44] VITALS: BP 137/66
[2023-03-02 04:33] VITALS: BP 126/63
[2023-03-02] MEDS: TRAMADOL /APAP 37.5MG/325MG TAB PO PRN (06:29)
[2023-03-02 06:35] LABS: BASOPHILS % (AUTO) 0.2 % (0.0-5.0); EOSINOPHILS % (AUTO) 2.1 % (0.0-8.0); HEMATOCRIT 25.8 % (42-54); LYMPHOCYTES % (AUTO) 13.5 % (21.0-51.0); MEAN CORPUSCULAR HEMOGLOBIN 33.6 pg (27.0-33.0); MEAN CORPUSCULAR HGB CONC 32.6 g/dL (32.0-36.0); MEAN CORPUSCULAR VOLUME 103.2 fL (79-99); MONOCYTES % (AUTO) 8.1 % (3.0-13.0); NEUTROPHILS % (AUTO) 74.8 % (40.0-77.0); PLATELET COUNT (AUTO) 29 K/uL (130-400); RED CELL DISTRIBUTION WIDTH 22.2 % (11.0-15.5); WHITE BLOOD COUNT (AUTO) 6.2 K/uL (4.8-10.8)
[2023-03-02 06:49] LABS: ALBUMIN 1.9 g/dL (3.5-5.0); CREATININE 1.3 mg/dL (0.5-1.5); POTASSIUM 4.5 mmol/L (3.5-5.1); TOTAL PROTEIN, SERUM 6.4 g/dL (6.0-8.3)
[2023-03-02 08:00] VITALS: BP 119/64
[2023-03-02] MEDS ORDERED: LACT10SO9 PO (09:07)
[2023-03-02] MEDS ORDERED: SPIR100T5 PO (09:07)
[2023-03-02] MEDS ORDERED: OMEP40CA21 PO (09:07)
[2023-03-02] MEDS ORDERED: FURO20TA4 PO (09:07)
[2023-03-02] MEDS ORDERED: ONDA4TAB10 PO (09:07)
[2023-03-02] MEDS ORDERED: LEVO750T68 PO (09:21)
[2023-03-02] MEDS: LACTULOSE 20 GM/30 ML UDCUP PO SCH (10:58)
[2023-03-02] MEDS: SPIRONOLACTONE 25 MG TAB PO SCH (10:58)
[2023-03-02] MEDS: FUROSEMIDE 40MG VIAL IV SCH (10:58)
== END 2023-03-02 12:10 | disposition home or self-care (01) | DRG 432 ==
LOC: EDH 11:13 → EDHIP 11:14 → 3CH 02-15 21:06
PROVIDERS: ADMIT Internal Medicine; ATTEND Internal Medicine
PROC: 30233N1 Transfusion of Nonautologous Red Blood Cells into Peripheral Vein, Percutaneous Approach (ICD-10-PCS; 2023-02-15)
PROC: 30233R1 Transfusion of Nonautologous Platelets into Peripheral Vein, Percutaneous Approach (ICD-10-PCS; 2023-02-15)
PROC: 30233K1 Transfusion of Nonautologous Frozen Plasma into Peripheral Vein, Percutaneous Approach (ICD-10-PCS; 2023-02-18)
PROC: 0T9B80Z Drainage of Bladder with Drainage Device, Via Natural or Artificial Opening Endoscopic (ICD-10-PCS; principal; 2023-02-22 21:09)
PROC: 0W9G3ZZ Drainage of Peritoneal Cavity, Percutaneous Approach (ICD-10-PCS; 2023-02-28)
DX: K70.31 Alcoholic cirrhosis of liver with ascites (principal); E43 Unspecified severe protein-calorie malnutrition; I85.11 Secondary esophageal varices with bleeding; L03.115 Cellulitis of right lower limb; Z20.822 Contact with and (suspected) exposure to COVID-19; D68.9 Coagulation defect, unspecified; N17.9 Acute kidney failure, unspecified; E87.20 Acidosis, unspecified; N39.0 Urinary tract infection, site not specified; J90 Pleural effusion, not elsewhere classified; D62 Acute posthemorrhagic anemia; D69.6 Thrombocytopenia, unspecified; E87.6 Hypokalemia; R16.1 Splenomegaly, not elsewhere classified; K70.40 Alcoholic hepatic failure without coma; K29.70 Gastritis, unspecified, without bleeding; D63.8 Anemia in other chronic diseases classified elsewhere; F14.90 Cocaine use, unspecified, uncomplicated; I86.4 Gastric varices; N40.0 Benign prostatic hyperplasia without lower urinary tract symptoms; Z79.899 Other long term (current) drug therapy; Z68.36 Body mass index [BMI] 36.0-36.9, adult
CPT/HCPCS: 36415; 36430; 43244; 49083; 73030; 74176; 74430; 76705; 80048; 80053; 80076; 80202; 80305; 81001; 82140; 82247; 82248; 82270; 82607; 82728; 82746; 82948; 83010; 83540; 83550; 83605; 83615; 83690; 83735; 84100; 84132; 84443; 84484; 85007; 85014; 85018; 85025; 85027; 85045; 85610; 85730; 86850; 86880; 86900; 86901; 86923; 86927; 87040; 87070; 87071; 87076; 87077; 87088; 87186; 87205; 87635; 89051; 93005; A4354; A4606; C1729; C1758; G0378; J0330; J0696; J1100; J1170; J1940; J2001; J2185; J2250; J2405; J2543; J2704; J2710; J3010; J3430; J3475; J3480; J3490; J7030; J7050; P9016; P9017; P9034; P9045; P9046; Q0163; Q9958; Q9963

== ENCOUNTER 2023-04-01 17:52 | Inpatient (IN) | payer OTHER ==
[~2023-04-01] VITALS: Ht 170.2 cm; Wt 92.8 kg
[~2023-04-01 17:52] MED LIST changes: -CEPH500B PO; +LEVO750T68 PO
[2023-04-01 18:42] LABS: BASOPHILS % (AUTO) 0.6 % (0.0-5.0); EOSINOPHILS % (AUTO) 1.7 % (0.0-8.0); LYMPHOCYTES % (AUTO) 22.2 % (21.0-51.0); MEAN CORPUSCULAR HEMOGLOBIN 34.5 pg (27.0-33.0); MEAN CORPUSCULAR HGB CONC 31.7 g/dL (32.0-36.0); MEAN CORPUSCULAR VOLUME 108.6 fL (79-99); NEUTROPHILS % (AUTO) 63.6 % (40.0-77.0); PLATELET COUNT (AUTO) 29 K/uL (130-400); RED BLOOD CELL COUNT(AUTO) 1.74 MIL/uL (4.50-6.20); RED CELL DISTRIBUTION WIDTH 18.3 % (11.0-15.5); WHITE BLOOD COUNT (AUTO) 3.6 K/uL (4.8-10.8)
[2023-04-01 19:06] LABS: INR 2.2 (0.85-1.15); PROTHROMBIN TIME 24.2 SEC (9.6-11.6)
[2023-04-01 19:07] LABS: PARTIAL THROMBOPLASTIN TIME 46.4 SEC (26.3-35.5)
[2023-04-01 19:21] LABS: ALBUMIN 1.6 g/dL (3.5-5.0); MAGNESIUM 1.7 mg/dL (1.80-2.40); TOTAL PROTEIN, SERUM 6.3 g/dL (6.0-8.3)
[2023-04-01 19:34] LABS: B-TYPE NATRIURETIC PEPTIDE 91 pg/mL (0-100)
[2023-04-01 19:37] LABS: HEMATOCRIT 18.9 % (42-54)
[2023-04-01] MEDS ORDERED: ACETAMINOPHEN 325 MG TAB PO PRN ×2 (20:00)
[2023-04-01] MEDS ORDERED: HYDROMORPHONE 1 MG INJ IV PRN (20:00)
[2023-04-01] MEDS ORDERED: HYDROCODONE/ACETAMINOPHEN 5/325 MG TAB PO PRN (20:00)
[2023-04-01] MEDS ORDERED: ONDANSETRON 4MG INJ IV PRN (20:00)
[2023-04-01 20:36] LABS: APPEARANCE,URINE CLEAR (CLEAR); BILIRUBIN,URINE NEGATIVE (NEGATIVE); COLOR,URINE YELLOW (YELLOW); GLUCOSE, URINE (UA) NEGATIVE (NEGATIVE); KETONES,URINE NEGATIVE (NEGATIVE); LEUKOCYTE ESTERASE ,URINE NEGATIVE Leu/uL (NEGATIVE); NITRATE,URINE NEGATIVE (NEGATIVE); OCCULT BLOOD,URINE LARGE (NEGATIVE); PH,URINE 5.5 (5.0-8.0); PROTEIN,URINE NEGATIVE (NEGATIVE); UROBILINOGEN,URINE 0.2 mg/dL (0.2-1.0)
[2023-04-01 21:31] LABS: MUCUS,URINE RARE LPF (None Seen); RBC,URINE 26-50 /HPF (0-1)
[2023-04-01 22:45] VITALS: BP 125/63; PULSE 83; RESP 20
[2023-04-02 04:00] VITALS: BP 118/52; PULSE 87; RESP 18
[2023-04-02 04:41] LABS: BASOPHILS % (AUTO) 0.6 % (0.0-5.0); EOSINOPHILS % (AUTO) 2.1 % (0.0-8.0); LYMPHOCYTES % (AUTO) 27.1 % (21.0-51.0); MEAN CORPUSCULAR HEMOGLOBIN 34.5 pg (27.0-33.0); MEAN CORPUSCULAR HGB CONC 32.3 g/dL (32.0-36.0); MEAN CORPUSCULAR VOLUME 106.9 fL (79-99); MONOCYTES % (AUTO) 8.7 % (3.0-13.0); NEUTROPHILS % (AUTO) 58.2 % (40.0-77.0); PLATELET COUNT (AUTO) 27 K/uL (130-400); RED BLOOD CELL COUNT(AUTO) 1.74 MIL/uL (4.50-6.20); RED CELL DISTRIBUTION WIDTH 18.3 % (11.0-15.5); WHITE BLOOD COUNT (AUTO) 3.3 K/uL (4.8-10.8)
[2023-04-02 04:55] LABS: CREATININE 1.7 mg/dL (0.5-1.5); HEMATOCRIT 18.6 % (42-54); MAGNESIUM 1.7 mg/dL (1.80-2.40); PHOSPHORUS 3.4 mg/dL (2.5-4.9); POTASSIUM 4.1 mmol/L (3.5-5.1)
[2023-04-02 08:00] VITALS: BP 112/62; PULSE 88; RESP 18; O2SAT 100
[2023-04-02] MEDS: PANTOPRAZOLE 40 MG/VIAL IVP SCH ×2 (08:15→08:24)
[2023-04-02] MEDS ORDERED: MAGNESIUM 2GM PREMIX 50ML 50 ML IV PRN (09:00)
[2023-04-02] MEDS ORDERED: KCL 20 MEQ ERTAB PO PRN (09:00)
[2023-04-02] MEDS ORDERED: POTASSIUM CHLORIDE 20MEQ/100ML 100 ML IV PRN (09:00)
[2023-04-02] MEDS ORDERED: POTASSIUM CHLORIDE 10% ELIXIR 20 MEQ/15 ML UDCUP PO PRN (09:00)
[2023-04-02] MEDS ORDERED: PANTOPRAZOLE 40 MG/VIAL IVP SCH (09:00)
[2023-04-02 12:00] VITALS: BP 115/55; PULSE 87; RESP 17
[2023-04-02] MEDS ORDERED: SPIR25TA6 PO (12:00)
[2023-04-02] MEDS ORDERED: LACT10SO9 PO (12:00)
[2023-04-02] MEDS ORDERED: FURO20TA4 PO (12:00)
[2023-04-02 20:00] VITALS: BP 146/84; PULSE 91; RESP 18
[2023-04-02] MEDS ORDERED: LACTULOSE 20 GM/30 ML UDCUP PO SCH (21:00)
[2023-04-03] MEDS ORDERED: Vitamin B Complex/Vit C/Folic Acid PO SCH (09:00)
[2023-04-03] MEDS ORDERED: THIAMINE HCL 100 MG TABLET PO SCH (09:00)
[2023-04-03] MEDS ORDERED: FUROSEMIDE 20 MG TABLET PO SCH (09:30)
== END 2023-04-02 15:40 | disposition home or self-care (01) | DRG 432 ==
LOC: EDH 17:52 → EDHIP 17:53 → 4AH 23:04
PROVIDERS: ADMIT Internal Medicine; ATTEND Internal Medicine
PROC: 30233N1 Transfusion of Nonautologous Red Blood Cells into Peripheral Vein, Percutaneous Approach (ICD-10-PCS; principal; 2023-04-02)
DX: K70.31 Alcoholic cirrhosis of liver with ascites (principal); E43 Unspecified severe protein-calorie malnutrition; K76.7 Hepatorenal syndrome; D68.9 Coagulation defect, unspecified; N17.9 Acute kidney failure, unspecified; D69.6 Thrombocytopenia, unspecified; Z87.891 Personal history of nicotine dependence; Z68.32 Body mass index [BMI] 32.0-32.9, adult
CPT/HCPCS: 36415; 71045; 80048; 80053; 81001; 82140; 83605; 83690; 83735; 83880; 84100; 84484; 85007; 85025; 85610; 85730; 86850; 86900; 86901; 86923; 87040; 87077; 87186; 93005; C9113; G0378; P9016

== ENCOUNTER 2023-04-06 22:21 | Inpatient (IN) | payer OTHER ==
[~2023-04-06] VITALS: Ht 170.2 cm; Wt 95.7 kg
[~2023-04-06 22:21] MED LIST changes: -LEVO750T68 PO; -ONDA4TAB10 PO; -SPIR100T5 PO; +SPIR25TA6 PO
[2023-04-06] MEDS ORDERED: ONDANSETRON 4MG INJ IVP ONE (23:00)
[2023-04-06] MEDS ORDERED: ACETAMINOPHEN 325 MG TAB PO ONE (23:00)
[2023-04-06 23:13] LABS: APPEARANCE,URINE TURBID (CLEAR); BILIRUBIN,URINE 2 mg/dL (NEGATIVE); COLOR,URINE DARK-YELLOW (YELLOW); GLUCOSE, URINE (UA) NEGATIVE (NEGATIVE); KETONES,URINE NEGATIVE (NEGATIVE); LEUKOCYTE ESTERASE ,URINE NEGATIVE Leu/uL (NEGATIVE); NITRATE,URINE NEGATIVE (NEGATIVE); OCCULT BLOOD,URINE LARGE (NEGATIVE); PROTEIN,URINE 20 mg/dL (NEGATIVE); UROBILINOGEN,URINE 3 mg/dL (0.2-1.0)
[2023-04-06 23:17] LABS: BASOPHILS # (AUTO) 0.01 K/uL (0.00-0.20); BASOPHILS % (AUTO) 0.2 % (0.0-5.0); EOSINOPHILS # (AUTO) 0.03 K/uL (0.00-0.70); EOSINOPHILS % (AUTO) 0.5 % (0.0-8.0); HEMATOCRIT 21.3 % (42-54); IMMATURE GRANULOCYTE ABSOLUTE 0.06 K/uL (0-1); LYMPHOCYTES # (AUTO) 0.3 K/uL (1.0-4.8); MEAN CORPUSCULAR HGB CONC 32.9 g/dL (32.0-36.0); MEAN CORPUSCULAR VOLUME 103.4 fL (79-99); MONOCYTES # (AUTO) 0.1 K/uL (0.1-1.0); MONOCYTES % (AUTO) 1.3 % (3.0-13.0); NEUTROPHILS # (AUTO) 5.5 K/uL (1.8-7.7); NUCLEATED RED BLOOD CELLS 0.3 % (0.0-0.19); PLATELET COUNT (AUTO) 31 K/uL (130-400); RED BLOOD CELL COUNT(AUTO) 2.06 MIL/uL (4.50-6.20); RED CELL DISTRIBUTION WIDTH 21.6 % (11.0-15.5)
[2023-04-06 23:22] LABS: ADD UA MICROSCOPIC YES
[2023-04-06 23:22] LABS: CREATININE 1.6 mg/dL (0.5-1.5); POTASSIUM 4.2 mmol/L (3.5-5.1)
[2023-04-06 23:27] LABS: ALBUMIN 1.5 g/dL (3.5-5.0); BILIRUBIN,TOTAL 8.5 mg/dL (0.2-1.0); TOTAL PROTEIN, SERUM 6.3 g/dL (6.0-8.3)
[2023-04-06 23:28] LABS: SARS-CoV-2, RNA, NAAT NEGATIVE SARS CoV-2 (NEGATIVE)
[2023-04-06 23:29] LABS: BACTERIA,URINE RARE /HPF (None Seen); MUCUS,URINE FEW LPF (None Seen); RBC,URINE 26-50 /HPF (0-1); SQUAMOUS EPITHELIAL CELL,UR RARE /HPF (0-2)
[2023-04-06 23:32] LABS: INFLUENZA TYPE A Negative For Type A (NEGATIVE); INFLUENZA TYPE B Negative For Type B (NEGATIVE)
[2023-04-07] MEDS ORDERED: ONDANSETRON 4MG INJ IV PRN (00:30)
[2023-04-07] MEDS ORDERED: CEFTRIAXONE 1G VIAL ONE (00:52)
[2023-04-07] MEDS: CEFTRIAXONE 1G VIAL 2 GM in 0.9%NACL 100ML 100 ML IV SCH (01:03)
[2023-04-07] MEDS: FUROSEMIDE 20MG VIAL IV SCH ×2 (01:04→12:02)
[2023-04-07 04:03] LABS: HEMATOCRIT 19.4 % (42-54)
[2023-04-07 04:08] LABS: INR 2.33 (0.85-1.15); PROTHROMBIN TIME 25.6 SEC (9.6-11.6)
[2023-04-07] MEDS ORDERED: 0.9% NACL 500ML IV.SOLN 500 ML IV ONE (04:30)
[2023-04-07] MEDS: LACTULOSE 20 GM/30 ML UDCUP PO SCH ×3 (06:40→21:40)
[2023-04-07] MEDS ORDERED: PANTOPRAZOLE 40 MG TAB DR PO SCH (09:00)
[2023-04-07 10:16] LABS: HEMATOCRIT 20.8 % (42-54)
[2023-04-07] MEDS ORDERED: OCTREOTIDE ACETATE 1,250 MCG in 0.9% NACL 250ML 250 ML IV SCH (13:00)
[2023-04-07 14:20] LABS: INR 2.05 (0.85-1.15); PROTHROMBIN TIME 22.7 SEC (9.6-11.6)
[2023-04-07 14:21] LABS: PARTIAL THROMBOPLASTIN TIME 47.8 SEC (26.3-35.5)
[2023-04-07 14:31] LABS: POTASSIUM 4.6 mmol/L (3.5-5.1)
[2023-04-07] MEDS: PANTOPRAZOLE 40MG INJ 80 MG in 0.9%NACL 100ML 100 ML IVP SCH ×2 (14:32→23:05)
[2023-04-07 14:40] LABS: ALBUMIN 1.4 g/dL (3.5-5.0); BILIRUBIN,DIRECT 6.6 mg/dL (0.0-0.3); BILIRUBIN,TOTAL 9.9 mg/dL (0.2-1.0); TOTAL PROTEIN, SERUM 5.7 g/dL (6.0-8.3)
[2023-04-07 15:16] LABS: PCO2,VENOUS BLOOD GAS 32 (35-48); PH,VENOUS BLOOD GAS 7.374 (7.350-7.450); PO2,VENOUS BLOOD GAS 28.9 mmHg (35.0-45.0); VENT MODE, BG RA (ROOM AIR)
[2023-04-07 15:25] LABS: BASOPHILS # (AUTO) 0.02 K/uL (0.00-0.20); BASOPHILS % (AUTO) 0.2 % (0.0-5.0); EOSINOPHILS # (AUTO) 0.02 K/uL (0.00-0.70); EOSINOPHILS % (AUTO) 0.2 % (0.0-8.0); HEMATOCRIT 22.9 % (42-54); LYMPHOCYTES # (AUTO) 0.5 K/uL (1.0-4.8); MEAN CORPUSCULAR HEMOGLOBIN 32.9 pg (27.0-33.0); MEAN CORPUSCULAR HGB CONC 32.8 g/dL (32.0-36.0); MEAN CORPUSCULAR VOLUME 100.4 fL (79-99); MONOCYTES # (AUTO) 0.5 K/uL (0.1-1.0); MONOCYTES % (AUTO) 5.2 % (3.0-13.0); NEUTROPHILS # (AUTO) 8.6 K/uL (1.8-7.7); NEUTROPHILS % (AUTO) 88.4 % (40.0-77.0); NUCLEATED RED BLOOD CELLS 0.2 % (0.0-0.19); PLATELET COUNT (AUTO) 36 K/uL (130-400); RED BLOOD CELL COUNT(AUTO) 2.28 MIL/uL (4.50-6.20); RED CELL DISTRIBUTION WIDTH 21.7 % (11.0-15.5); WHITE BLOOD COUNT (AUTO) 9.8 K/uL (4.8-10.8)
[2023-04-07 16:40] VITALS: BP 108/60; PULSE 91; RESP 18
[2023-04-07] MEDS ORDERED: SODIUM BICARB 50MEQ 50ML VIAL 50 ML ONE (16:45)
[2023-04-07] MEDS: SODIUM BICARB 8.4% 50ML SYRINGE IVP SCH (16:46)
[2023-04-07 17:00] VITALS: O2SAT 100
[2023-04-07 19:30] VITALS: O2SAT 100
[2023-04-07 20:00] VITALS: BP 108/58; PULSE 89; RESP 18
[2023-04-07] MEDS ORDERED: ALBUMIN (HUMAN) 25% 50 ML IV ONE (20:00)
[2023-04-07] MEDS ORDERED: FUROSEMIDE 20MG VIAL IV ONE (20:45)
[2023-04-07 22:19] LABS: BASOPHILS # (AUTO) 0.01 K/uL (0.00-0.20); BASOPHILS % (AUTO) 0.1 % (0.0-5.0); EOSINOPHILS # (AUTO) 0.04 K/uL (0.00-0.70); EOSINOPHILS % (AUTO) 0.5 % (0.0-8.0); HEMATOCRIT 21.3 % (42-54); IMMATURE GRANULOCYTE ABSOLUTE 0.08 K/uL (0-1); LYMPHOCYTES # (AUTO) 0.7 K/uL (1.0-4.8); MEAN CORPUSCULAR HEMOGLOBIN 32.4 pg (27.0-33.0); MEAN CORPUSCULAR HGB CONC 32.4 g/dL (32.0-36.0); MONOCYTES # (AUTO) 0.3 K/uL (0.1-1.0); MONOCYTES % (AUTO) 3.9 % (3.0-13.0); NEUTROPHILS # (AUTO) 7.1 K/uL (1.8-7.7); NEUTROPHILS % (AUTO) 86.5 % (40.0-77.0); PLATELET COUNT (AUTO) 27 K/uL (130-400); RED BLOOD CELL COUNT(AUTO) 2.13 MIL/uL (4.50-6.20); RED CELL DISTRIBUTION WIDTH 22.3 % (11.0-15.5); WHITE BLOOD COUNT (AUTO) 8.2 K/uL (4.8-10.8)
[2023-04-07 22:28] LABS: CREATININE 1.9 mg/dL (0.5-1.5); POTASSIUM 4.4 mmol/L (3.5-5.1)
[2023-04-07 22:33] LABS: ALBUMIN 1.6 g/dL (3.5-5.0); BILIRUBIN,TOTAL 10.5 mg/dL (0.2-1.0); TOTAL PROTEIN, SERUM 5.9 g/dL (6.0-8.3)
[2023-04-08] VITALS (15 sets, daily range): BP systolic 91–117; BP diastolic 56–76; PULSE 60–93; RESP 16–18; TEMP 98.9; O2SAT 100
[2023-04-08] MEDS: ACETAMINOPHEN 325 MG TAB PO PRN ×2 (00:16→18:07)
[2023-04-08] MEDS ORDERED: CEFTRIAXONE 2GM VIAL ONE (00:37)
[2023-04-08] MEDS: CEFTRIAXONE 1G VIAL 2 GM in 0.9%NACL 100ML 100 ML IV SCH (00:42)
[2023-04-08 03:41] LABS: HEMATOCRIT 22.5 % (42-54); MEAN CORPUSCULAR HGB CONC 32.9 g/dL (32.0-36.0); MEAN CORPUSCULAR VOLUME 97.4 fL (79-99); RED BLOOD CELL COUNT(AUTO) 2.31 MIL/uL (4.50-6.20); RED CELL DISTRIBUTION WIDTH 22.4 % (11.0-15.5); WHITE BLOOD COUNT (AUTO) 8.4 K/uL (4.8-10.8)
[2023-04-08 03:56] LABS: ALBUMIN 1.5 g/dL (3.5-5.0); BILIRUBIN,DIRECT 6.4 mg/dL (0.0-0.3); BILIRUBIN,TOTAL 10.7 mg/dL (0.2-1.0); CREATININE 1.8 mg/dL (0.5-1.5); MAGNESIUM 1.7 mg/dL (1.80-2.40); POTASSIUM 4.5 mmol/L (3.5-5.1); TOTAL PROTEIN, SERUM 5.5 g/dL (6.0-8.3)
[2023-04-08] MEDS: LACTULOSE 20 GM/30 ML UDCUP PO SCH ×4 (06:00→20:53)
[2023-04-08] MEDS ORDERED: MAGNESIUM 2GM PREMIX 50ML 50 ML IV SCH (07:30)
[2023-04-08] MEDS ORDERED: M.V.I. IV [ADULT] 10 ML, FOLIC ACID 1 MG, THIAMINE HCL 100 MG in 0.9%NACL 1000ML 1,000 ML IV SCH (09:00)
[2023-04-08] MEDS: PANTOPRAZOLE 40MG INJ 80 MG in 0.9%NACL 100ML 100 ML IVP SCH ×2 (10:01→18:06)
[2023-04-08 10:28] LABS: HEMATOCRIT 22.8 % (42-54)
[2023-04-08] MEDS ORDERED: ZOSYN 3.375GM +NS 50ML IVPB SCH (10:30)
[2023-04-08] MEDS: SODIUM BICARB 8.4% 50ML SYRINGE IVP SCH ×2 (10:56→18:04)
[2023-04-08] MEDS ORDERED: COMPOUND IV REFRIGERATED 1 EACH IVSOLN MISC PRN (12:00)
[2023-04-08 14:39] LABS: BODY FLUID RBC 1592 /cu. mm.
[2023-04-08 14:42] LABS: BODY FLUID WBC 462 /cu. mm.
[2023-04-08 15:28] LABS: APPEARANCE BODY FLUID SLIGHTLY CLOUDY (CLEAR); COLOR,BODY FLUID YELLOW (LT YELLOW); SPECIMENTYPE,BODY FLUID ASCITES; TOTAL VOLUME,BODY FLUID 3000 mL
[2023-04-08 15:45] LABS: BF LYMPHOCYTE 27 %; BF MACROPHAGE 40; BF MONOCYTE 1 %; BF TOTAL CELLS COUNTED 100
[2023-04-08 16:35] LABS: HEMATOCRIT 21.4 % (42-54)
[2023-04-08 22:38] LABS: HEMATOCRIT 24.2 % (42-54)
[2023-04-08 22:42] LABS: PLATELET COUNT (AUTO) 39 K/uL (130-400)
[2023-04-09] VITALS (9 sets, daily range): BP systolic 109–131; BP diastolic 44–74; PULSE 81–95; RESP 16–18; O2SAT 99–100
[2023-04-09 04:42] LABS: HEMATOCRIT 23.7 % (42-54); MEAN CORPUSCULAR HEMOGLOBIN 31.7 pg (27.0-33.0); MEAN CORPUSCULAR HGB CONC 33.8 g/dL (32.0-36.0); PLATELET COUNT (AUTO) 39 K/uL (130-400); RED BLOOD CELL COUNT(AUTO) 2.52 MIL/uL (4.50-6.20); RED CELL DISTRIBUTION WIDTH 21.2 % (11.0-15.5); WHITE BLOOD COUNT (AUTO) 6.5 K/uL (4.8-10.8)
[2023-04-09] MEDS: PANTOPRAZOLE 40MG INJ 80 MG in 0.9%NACL 100ML 100 ML IVP SCH (04:43)
[2023-04-09 05:01] LABS: INR 2.02 (0.85-1.15); PROTHROMBIN TIME 22.4 SEC (9.6-11.6)
[2023-04-09 05:03] LABS: PARTIAL THROMBOPLASTIN TIME 46.1 SEC (26.3-35.5)
[2023-04-09 05:05] LABS: ALBUMIN 1.5 g/dL (3.5-5.0); BILIRUBIN,DIRECT 5.9 mg/dL (0.0-0.3); CREATININE 1.3 mg/dL (0.5-1.5); MAGNESIUM 2.1 mg/dL (1.80-2.40); POTASSIUM 3.7 mmol/L (3.5-5.1); TOTAL PROTEIN, SERUM 5.7 g/dL (6.0-8.3)
[2023-04-09] MEDS: LACTULOSE 20 GM/30 ML UDCUP PO SCH ×3 (06:13→20:19)
[2023-04-09] MEDS: CEFTRIAXONE 2GM VIAL IVPB SCH (08:20)
[2023-04-09 10:04] LABS: HEMATOCRIT 26.5 % (42-54)
[2023-04-09 15:52] LABS: HEMATOCRIT 27.3 % (42-54)
[2023-04-09] MEDS: RIFAXIMIN 550 MG TABLET PO SCH (20:19)
[2023-04-09] MEDS: ACETAMINOPHEN 325 MG TAB PO PRN (21:42)
[2023-04-09 23:46] LABS: HEMATOCRIT 23.7 % (42-54)
[2023-04-10] VITALS (7 sets, daily range): BP systolic 114–129; BP diastolic 55–71; PULSE 75–83; RESP 16–18; O2SAT 99
[2023-04-10 04:23] LABS: HEMATOCRIT 27.7 % (42-54); MEAN CORPUSCULAR HEMOGLOBIN 32.1 pg (27.0-33.0); MEAN CORPUSCULAR HGB CONC 33.2 g/dL (32.0-36.0); MEAN CORPUSCULAR VOLUME 96.5 fL (79-99); RED BLOOD CELL COUNT(AUTO) 2.87 MIL/uL (4.50-6.20); RED CELL DISTRIBUTION WIDTH 20.7 % (11.0-15.5); WHITE BLOOD COUNT (AUTO) 4.9 K/uL (4.8-10.8)
[2023-04-10 04:34] LABS: INR 1.98 (0.85-1.15)
[2023-04-10 05:07] LABS: ALBUMIN 1.7 g/dL (3.5-5.0); BILIRUBIN,DIRECT 6.3 mg/dL (0.0-0.3); BILIRUBIN,TOTAL 11.5 mg/dL (0.2-1.0); CREATININE 1.2 mg/dL (0.5-1.5); MAGNESIUM 2.2 mg/dL (1.80-2.40); POTASSIUM 4.3 mmol/L (3.5-5.1); TOTAL PROTEIN, SERUM 6.6 g/dL (6.0-8.3)
[2023-04-10] MEDS: LACTULOSE 20 GM/30 ML UDCUP PO SCH ×3 (06:01→20:43)
[2023-04-10] MEDS: RIFAXIMIN 550 MG TABLET PO SCH ×2 (08:00→20:43)
[2023-04-10] MEDS: PANTOPRAZOLE 40 MG TAB DR PO SCH (08:00)
[2023-04-10] MEDS: CEFTRIAXONE 2GM VIAL IVPB SCH (08:00)
[2023-04-11] VITALS (7 sets, daily range): BP systolic 118–134; BP diastolic 64–79; PULSE 78–88; RESP 18–20; O2SAT 98–99
[2023-04-11 10:27] LABS: ALBUMIN 1.5 g/dL (3.5-5.0); BILIRUBIN,TOTAL 10.5 mg/dL (0.2-1.0); CREATININE 1.2 mg/dL (0.5-1.5); MAGNESIUM 2.2 mg/dL (1.80-2.40); POTASSIUM 4.2 mmol/L (3.5-5.1)
[2023-04-11] MEDS: CEFTRIAXONE 2GM VIAL IVPB SCH (10:35)
[2023-04-11] MEDS: RIFAXIMIN 550 MG TABLET PO SCH ×2 (10:37→20:03)
[2023-04-11] MEDS: PANTOPRAZOLE 40 MG TAB DR PO SCH (10:37)
[2023-04-11] MEDS: LACTULOSE 20 GM/30 ML UDCUP PO SCH ×3 (10:39→20:03)
[2023-04-11 14:38] LABS: HEMATOCRIT 26.1 % (42-54); RED BLOOD CELL COUNT(AUTO) 2.69 MIL/uL (4.50-6.20); RED CELL DISTRIBUTION WIDTH 20.7 % (11.0-15.5); WHITE BLOOD COUNT (AUTO) 4.1 K/uL (4.8-10.8)
[2023-04-12 03:35] VITALS: BP 124/59; PULSE 80; RESP 18
[2023-04-12 04:20] LABS: ALBUMIN 1.5 g/dL (3.5-5.0); BILIRUBIN,TOTAL 9.1 mg/dL (0.2-1.0); CREATININE 1.1 mg/dL (0.5-1.5); POTASSIUM 4.2 mmol/L (3.5-5.1); TOTAL PROTEIN, SERUM 5.8 g/dL (6.0-8.3)
[2023-04-12] MEDS: LACTULOSE 20 GM/30 ML UDCUP PO SCH ×2 (05:42→14:13)
[2023-04-12 06:35] VITALS: BP 112/55; PULSE 82; RESP 18
[2023-04-12] MEDS: RIFAXIMIN 550 MG TABLET PO SCH (07:48)
[2023-04-12] MEDS: PANTOPRAZOLE 40 MG TAB DR PO SCH (07:48)
[2023-04-12] MEDS: CEFTRIAXONE 2GM VIAL IVPB SCH (07:49)
[2023-04-12 07:57] VITALS: O2SAT 98
[2023-04-12] MEDS ORDERED: FUROSEMIDE 20 MG TABLET PO SCH (09:00)
[2023-04-12] MEDS ORDERED: SPIRONOLACTONE 25 MG TAB PO SCH (09:00)
[2023-04-12 11:21] VITALS: BP 124/68; PULSE 81; RESP 18
[2023-04-12] MEDS ORDERED: RIFA550T PO (15:04)
[2023-04-12 15:57] VITALS: BP 132/69; PULSE 85; RESP 20
== END 2023-04-12 16:30 | disposition home or self-care (01) | DRG 871 ==
LOC: EDH 22:21 → EDHIP 22:22 → 2AH 04-07 16:14
PROVIDERS: ADMIT Hospitalist; ATTEND Hospitalist
PROC: 30233K1 Transfusion of Nonautologous Frozen Plasma into Peripheral Vein, Percutaneous Approach (ICD-10-PCS; 2023-04-07)
PROC: 30233N1 Transfusion of Nonautologous Red Blood Cells into Peripheral Vein, Percutaneous Approach (ICD-10-PCS; 2023-04-07)
PROC: 30233R1 Transfusion of Nonautologous Platelets into Peripheral Vein, Percutaneous Approach (ICD-10-PCS; 2023-04-07)
PROC: 0W9G3ZZ Drainage of Peritoneal Cavity, Percutaneous Approach (ICD-10-PCS; principal; 2023-04-08)
DX: A41.89 Other specified sepsis (principal); K65.2 Spontaneous bacterial peritonitis; D68.9 Coagulation defect, unspecified; Z20.822 Contact with and (suspected) exposure to COVID-19; K70.40 Alcoholic hepatic failure without coma; D69.6 Thrombocytopenia, unspecified; D64.9 Anemia, unspecified; K70.31 Alcoholic cirrhosis of liver with ascites; D73.1 Hypersplenism
CPT/HCPCS: 36415; 36430; 36600; 49083; 71045; 80048; 80053; 80076; 81001; 82140; 82803; 83605; 83690; 83735; 84484; 85014; 85018; 85025; 85027; 85049; 85610; 85730; 86850; 86900; 86901; 86923; 86927; 87040; 87071; 87077; 87088; 87186; 87205; 87635; 87804; 89051; 93005; C1729; C9113; C9803; G0378; J0696; J1940; J2354; J2405; J2543; J3411; J3475; J3490; J7030; J7050; P9016; P9017; P9034; P9047

== ENCOUNTER 2023-04-19 07:13 | Inpatient (IN) | payer OTHER ==
[~2023-04-19] VITALS: Ht 170.2 cm; Wt 108.4 kg
[~2023-04-19 07:13] MED LIST changes: -OMEP40CA21 PO; +RIFA550T PO
[2023-04-19 08:27] LABS: HEMATOCRIT 23.8 % (42-54); MEAN CORPUSCULAR HEMOGLOBIN 32.9 pg (27.0-33.0); MEAN CORPUSCULAR HGB CONC 32.8 g/dL (32.0-36.0); MEAN CORPUSCULAR VOLUME 100.4 fL (79-99); PLATELET COUNT (AUTO) 20 K/uL (130-400); RED BLOOD CELL COUNT(AUTO) 2.37 MIL/uL (4.50-6.20); RED CELL DISTRIBUTION WIDTH 22.6 % (11.0-15.5); WHITE BLOOD COUNT (AUTO) 7.1 K/uL (4.8-10.8)
[2023-04-19 08:35] LABS: APPEARANCE,URINE CLOUDY (CLEAR); BILIRUBIN,URINE 2 mg/dL (NEGATIVE); COLOR,URINE DARK-YELLOW (YELLOW); CREATININE 2.8 mg/dL (0.5-1.5); GLUCOSE, URINE (UA) NEGATIVE (NEGATIVE); KETONES,URINE NEGATIVE (NEGATIVE); LEUKOCYTE ESTERASE ,URINE 25 Leu/uL (NEGATIVE); NITRATE,URINE NEGATIVE (NEGATIVE); OCCULT BLOOD,URINE LARGE (NEGATIVE); PROTEIN,URINE 20 mg/dL (NEGATIVE); UROBILINOGEN,URINE 0.2 mg/dL (0.2-1.0)
[2023-04-19 08:37] LABS: ADD UA MICROSCOPIC YES
[2023-04-19 08:40] LABS: ALBUMIN 1.5 g/dL (3.5-5.0); BACTERIA,URINE FEW /HPF (None Seen); BILIRUBIN,TOTAL 12.9 mg/dL (0.2-1.0); MUCUS,URINE RARE LPF (None Seen); RBC,URINE 51-100 /HPF (0-1); SQUAMOUS EPITHELIAL CELL,UR RARE /HPF (0-2); TOTAL PROTEIN, SERUM 6.3 g/dL (6.0-8.3)
[2023-04-19] MEDS ORDERED: ZOSYN 3.375GM +NS 50ML IVPB ONE (09:00)
[2023-04-19 09:09] LABS: MAGNESIUM 1.7 mg/dL (1.80-2.40)
[2023-04-19 09:17] LABS: BAND NEUTROPHILS % (MANUAL) 51 % (0-2); EOSINOPHILS % (MANUAL) 1 % (1-6); LYMPHOCYTES % (MANUAL) 7 % (22-44); MONOCYTES % (MANUAL) 1 % (2-9); SEGMENTED NEUTROPHILS % 40 % (40-70); TOTAL CELLS COUNTED 100
[2023-04-19 09:18] LABS: MAN.DIFF COMMENT-IMPRESSION MANUAL DIFFERENTIAL; WBC MORPHOLOGY CONSISTENT W/DIFF
[2023-04-19 09:20] LABS: PLATELET MORPHOLOGY COMMENT MARKED DECREASE
[2023-04-19] MEDS ORDERED: POTASSIUM CHLORIDE 10% ELIXIR 20 MEQ/15 ML UDCUP PO PRN (09:30)
[2023-04-19] MEDS ORDERED: KCL 20 MEQ ERTAB PO PRN (09:30)
[2023-04-19] MEDS ORDERED: POTASSIUM CHLORIDE 20MEQ/100ML 100 ML IV PRN (09:30)
[2023-04-19] MEDS ORDERED: MAGNESIUM 2GM PREMIX 50ML 50 ML IV PRN (09:30)
[2023-04-19] MEDS ORDERED: MEROPENEM 500 MG VIAL IV SCH (09:30)
[2023-04-19] MEDS ORDERED: LACTATED RINGERS 1000ML 1,914 ML IV ONE (09:30)
[2023-04-19 09:39] LABS: INR 3.49 (0.85-1.15)
[2023-04-19 09:41] LABS: % IRON SATURATION 60.3 % (30-44); PARTIAL THROMBOPLASTIN TIME 61.5 SEC (26.3-35.5)
[2023-04-19 10:00] LABS: HEMOGLOBIN A1C 4.2 % (4.0-6.0)
[2023-04-19 10:12] LABS: PROTHROMBIN TIME 37.3 SEC (9.6-11.6)
[2023-04-19] MEDS: MEROPENEM 1 GM/NS 100 CRCL 26-50 IV SCH ×4 (11:12→23:29)
[2023-04-19] MEDS ORDERED: OCTREOTIDE ACETATE 100 MCG/ML AMP SQ ONE (14:00)
[2023-04-19] MEDS: MIDODRINE HCL 5 MG TABLET PO SCH ×2 (14:41→20:13)
[2023-04-19] MEDS: ALBUMIN (HUMAN) 25% 50 ML IV SCH ×2 (14:42→23:27)
[2023-04-19] MEDS ORDERED: ACETAMINOPHEN 500 MG TABLET PO PRN (15:30)
[2023-04-19] MEDS: MORPHINE 2 MG SYG IVP PRN ×2 (15:34→20:12)
[2023-04-19] MEDS ORDERED: MEROPENEM 1 GM VIAL ONE (23:28)
[2023-04-20] VITALS (66 sets, daily range): BP systolic 103–167; BP diastolic 39–85; PULSE 87–120; RESP 13–27; TEMP 100.1; O2SAT 92–98
[2023-04-20] MEDS: ONDANSETRON 4MG INJ IV PRN
[2023-04-20] MEDS: MORPHINE 2 MG SYG IVP PRN ×3 (00:03→22:50)
[2023-04-20 04:03] LABS: BASOPHILS # (AUTO) 0.02 K/uL (0.00-0.20); BASOPHILS % (AUTO) 0.3 % (0.0-5.0); EOSINOPHILS # (AUTO) 0.17 K/uL (0.00-0.70); EOSINOPHILS % (AUTO) 2.7 % (0.0-8.0); HEMATOCRIT 24.2 % (42-54); IMMATURE GRANULOCYTE ABSOLUTE 0.08 K/uL (0-1); LYMPHOCYTES # (AUTO) 0.3 K/uL (1.0-4.8); MEAN CORPUSCULAR HEMOGLOBIN 32.4 pg (27.0-33.0); MEAN CORPUSCULAR HGB CONC 31.8 g/dL (32.0-36.0); MEAN CORPUSCULAR VOLUME 101.7 fL (79-99); MONOCYTES # (AUTO) 0.2 K/uL (0.1-1.0); MONOCYTES % (AUTO) 3.3 % (3.0-13.0); NEUTROPHILS # (AUTO) 5.5 K/uL (1.8-7.7); NEUTROPHILS % (AUTO) 87.4 % (40.0-77.0); NUCLEATED RED BLOOD CELLS 0.3 % (0.0-0.19); PLATELET COUNT (AUTO) 24 K/uL (130-400); RED BLOOD CELL COUNT(AUTO) 2.38 MIL/uL (4.50-6.20); RED CELL DISTRIBUTION WIDTH 22.6 % (11.0-15.5); WHITE BLOOD COUNT (AUTO) 6.3 K/uL (4.8-10.8)
[2023-04-20 04:47] LABS: ALBUMIN 1.5 g/dL (3.5-5.0); BILIRUBIN,TOTAL 14.2 mg/dL (0.2-1.0); CREATININE 2.4 mg/dL (0.5-1.5); MAGNESIUM 1.9 mg/dL (1.80-2.40); PHOSPHORUS 5.9 mg/dL (2.5-4.9); POTASSIUM 5.4 mmol/L (3.5-5.1); THYROID STIMULATING HORMONE 1.38 uIU/mL (0.36-3.74); TOTAL PROTEIN, SERUM 6.1 g/dL (6.0-8.3); URIC ACID 6.6 mg/dL (2.6-7.2)
[2023-04-20] MEDS: ALBUMIN (HUMAN) 25% 50 ML IV SCH ×3 (05:17→22:37)
[2023-04-20] MEDS: MIDODRINE HCL 5 MG TABLET PO SCH ×3 (08:52→22:37)
[2023-04-20] MEDS: Vitamin B Complex/Vit C/Folic Acid PO SCH (08:52)
[2023-04-20] MEDS: THIAMINE HCL 100 MG/ML 2ML VIAL IVP SCH (08:52)
[2023-04-20] MEDS: MEROPENEM 1 GM/NS 100 CRCL 26-50 IV SCH ×4 (11:27→23:07)
[2023-04-20] MEDS ORDERED: FUROSEMIDE 40MG VIAL IV SCH (11:30)
[2023-04-20] MEDS ORDERED: COMPOUND IV MISC 1 EACH IVSOLN MISC PRN (12:00)
[2023-04-20] MEDS ORDERED: BUMETANIDE 2.5MG/10ML VIAL 40 ML IV SCH (12:30)
[2023-04-20] MEDS ORDERED: MEROPENEM 1 GM in 0.9%NACL 100ML 100 ML IV SCH (12:30)
[2023-04-20] MEDS ORDERED: MAGNESIUM 2GM PREMIX 50ML 50 ML IV PRN (12:30)
[2023-04-20] MEDS ORDERED: SODIUM BICARB 8.4% 50ML SYRINGE IVP SCH (12:30)
[2023-04-20 12:36] LABS: HEMATOCRIT 21.3 % (42-54); MEAN CORPUSCULAR HEMOGLOBIN 32.2 pg (27.0-33.0); MEAN CORPUSCULAR HGB CONC 31.5 g/dL (32.0-36.0); MEAN CORPUSCULAR VOLUME 102.4 fL (79-99); NUCLEATED RED BLOOD CELLS 0.2 % (0.0-0.19); RED BLOOD CELL COUNT(AUTO) 2.08 MIL/uL (4.50-6.20); RED CELL DISTRIBUTION WIDTH 22.5 % (11.0-15.5); WHITE BLOOD COUNT (AUTO) 9.7 K/uL (4.8-10.8)
[2023-04-20 12:44] LABS: % IRON SATURATION 115.5 % (30-44)
[2023-04-20 12:49] LABS: CARBON DIOXIDE 19 mmol/L (21-32); CHLORIDE 101 mmol/L (101-111); CREATININE 2.6 mg/dL (0.5-1.5); GLOMERULAR FILTR. RATE CALC 30 mL/min (>90); GLUCOSE,RANDOM 76 mg/dL (70-105); POTASSIUM 5.4 mmol/L (3.5-5.1); SODIUM SERUM 131 mmol/L (136-145); UREA NITROGEN, BLOOD 47 mg/dL (7-18)
[2023-04-20 12:57] LABS: ALANINE AMINOTRANSFERASE 9 U/L (12-78); ALBUMIN 1.7 g/dL (3.5-5.0); AMMONIA < 10 umol/L (11-32); ASPARTATE AMINOTRANSFERASE 38 U/L (10-37); BILIRUBIN,TOTAL 15.6 mg/dL (0.2-1.0); TOTAL PROTEIN, SERUM 5.9 g/dL (6.0-8.3)
[2023-04-20 12:59] LABS: BILIRUBIN,DIRECT 9.5 mg/dL (0.0-0.3)
[2023-04-20 13:08] LABS: ABG BASE EXCESS -6.6 mmol/L (-2.0-3.0); ABG HCO3 18.2 mmol/L (21.0-28.0); ABG OXYGEN SATURATION 89.8 % (95.0-99.0); ABG PCO2 33 mmHg (35-48); ABG PH 7.358 (7.35-7.450); CARBON MONOXIDE 2.6; HHb 9.9; PO2, ARTERIAL BG 63.2 mmHg (83.0-108.0); VENT MODE, BG RA (ROOM AIR)
[2023-04-20 13:18] LABS: INR 3.02 (0.85-1.15); PROTHROMBIN TIME 32.6 SEC (9.6-11.6)
[2023-04-20] MEDS: PANTOPRAZOLE 40MG INJ 80 MG in 0.9%NACL 100ML 100 ML IVP SCH ×2 (13:24→22:38)
[2023-04-20] MEDS ORDERED: COMPOUND IV REFRIGERATED 1 EACH IVSOLN MISC PRN (13:30)
[2023-04-20] MEDS ORDERED: SODIUM BICARB 8.4% 50ML SYRING 150 MEQ in DEXTROSE 5%-WATER 1,000 ML IVP SCH (13:30)
[2023-04-20] MEDS ORDERED: SODIUM BICARB 50MEQ 50ML VIAL IV ONE (13:30)
[2023-04-20] MEDS ORDERED: PHARMACY COMMUNICATION MISC SCH ×3 (13:43→17:30)
[2023-04-20 14:18] LABS: HEPATITIS A IGM ANTIBODY Non-Reactive (Nonreactive); HEPATITIS B CORE IGM ANTIBODY Non-Reactive (Negative); HEPATITIS B SURFACE ANTIGEN Non-Reactive (Nonreactive); HEPATITIS C ANTIBODY Non-Reactive (Nonreactive)
[2023-04-20] MEDS ORDERED: KAYEXALATE 15GM/60ML PO ONE (14:30)
[2023-04-20] MEDS ORDERED: RENAL DOSE IV PRN (14:30)
[2023-04-20 15:25] LABS: AMPHET/METH SCREEN,URINE NEGATIVE (NEGATIVE); BARBITURATE SCREEN, URINE NEGATIVE (NEGATIVE); BENZODIAZEPINES SCREEN,URINE NEGATIVE (NEGATIVE); CANNABINOID SCREEN,URINE NEGATIVE (NEGATIVE); COCAINE SCREEN,URINE NEGATIVE (NEGATIVE); OPIATE SCREEN,URINE POSITIVE (NEGATIVE); PHENCYCLIDINE SCREEN,URINE NEGATIVE (NEGATIVE)
[2023-04-20 15:30] LABS: SARS-CoV-2, RNA, NAAT NEGATIVE SARS CoV-2 (NEGATIVE)
[2023-04-20] MEDS ORDERED: PANTOPRAZOLE 40 MG/VIAL IVP ONE (15:30)
[2023-04-20] MEDS ORDERED: OCTREOTIDE ACETATE 100 MCG/ML AMP IV ONE (15:30)
[2023-04-20 15:36] LABS: INFLUENZA TYPE A Negative For Type A (NEGATIVE); INFLUENZA TYPE B Negative For Type B (NEGATIVE)
[2023-04-20] MEDS ORDERED: SODIUM BICARBONATE 650 MG TAB PO ONE (15:50)
[2023-04-20] MEDS ORDERED: PHYTONADIONE 10 MG in 0.9%NACL 50ML 50 ML IVPB SCH (17:00)
[2023-04-20] MEDS ORDERED: CALCIUM GLUC 1GM 1 GM in 0.9%NACL 100ML 100 ML IV SCH (17:00)
[2023-04-20] MEDS ORDERED: SOLU-MEDROL 40MG VIAL IVP SCH (17:56)
[2023-04-20] MEDS ORDERED: DiphenhydrAMINE HCL 50 MG/ML VIAL IV SCH (17:56)
[2023-04-20] MEDS ORDERED: DiphenhydrAMINE HCL 50 MG/ML VIAL ONE (18:01)
[2023-04-20] MEDS ORDERED: ACETAMINOPHEN 325 MG TAB ONE (18:13)
[2023-04-20] MEDS ORDERED: ACETAMINOPHEN 325 MG TAB PO SCH (18:13)
[2023-04-20] MEDS: HYDROMORPHONE 0.5 MG SYG (0.5MG/0.5ML) IVP PRN (18:44)
[2023-04-20 19:57] LABS: MEAN CORPUSCULAR HEMOGLOBIN 32.8 pg (27.0-33.0); MEAN CORPUSCULAR HGB CONC 32.5 g/dL (32.0-36.0); NUCLEATED RED BLOOD CELLS 3.9 % (0.0-0.19); RED BLOOD CELL COUNT(AUTO) 1.92 MIL/uL (4.50-6.20); RED CELL DISTRIBUTION WIDTH 22.6 % (11.0-15.5); WHITE BLOOD COUNT (AUTO) 1.3 K/uL (4.8-10.8)
[2023-04-20 20:06] LABS: HEMATOCRIT 19.4 % (42-54)
[2023-04-20 20:11] LABS: INR 1.97 (0.85-1.15); PROTHROMBIN TIME 21.9 SEC (9.6-11.6)
[2023-04-20 20:12] LABS: CREATININE 2.4 mg/dL (0.5-1.5); POTASSIUM 5.6 mmol/L (3.5-5.1)
[2023-04-20 20:13] LABS: PARTIAL THROMBOPLASTIN TIME 42.3 SEC (26.3-35.5)
[2023-04-20] MEDS: SODIUM BICARBONATE 650 MG TAB PO SCH (22:37)
[2023-04-21] VITALS (100 sets, daily range): BP systolic 90–126; BP diastolic 31–86; PULSE 74–104; RESP 11–22; O2SAT 92–97
[2023-04-21] MEDS: OCTREOTIDE ACETATE 1,250 MCG in 0.9% NACL 250ML 250 ML IV SCH (03:34)
[2023-04-21 04:01] LABS: BASOPHILS # (AUTO) 0.01 K/uL (0.00-0.20); BASOPHILS % (AUTO) 0.1 % (0.0-5.0); IMMATURE GRANULOCYTE ABSOLUTE 0.16 K/uL (0-1); LYMPHOCYTES # (AUTO) 0.4 K/uL (1.0-4.8); LYMPHOCYTES % (AUTO) 4.3 % (21.0-51.0); MEAN CORPUSCULAR HEMOGLOBIN 32.4 pg (27.0-33.0); MEAN CORPUSCULAR HGB CONC 32.7 g/dL (32.0-36.0); MONOCYTES # (AUTO) 0.7 K/uL (0.1-1.0); MONOCYTES % (AUTO) 7.8 % (3.0-13.0); NEUTROPHILS # (AUTO) 7.7 K/uL (1.8-7.7); NUCLEATED RED BLOOD CELLS 0.4 % (0.0-0.19); PLATELET COUNT (AUTO) 28 K/uL (130-400); RED CELL DISTRIBUTION WIDTH 21.5 % (11.0-15.5)
[2023-04-21 04:04] LABS: HEMATOCRIT 20.8 % (42-54)
[2023-04-21 04:15] LABS: CREATININE 2.8 mg/dL (0.5-1.5)
[2023-04-21 04:20] LABS: POTASSIUM 6.4 mmol/L (3.5-5.1)
[2023-04-21] MEDS ORDERED: CALCIUM GLUC 1GM/10ML VIAL IV ONE (05:30)
[2023-04-21] MEDS: DEXTROSE 5 % AND 0.9 % NACL 1,000 ML IV SCH ×2 (05:41→06:00)
[2023-04-21] MEDS: ALBUMIN (HUMAN) 25% 50 ML IV SCH ×3 (05:42→21:10)
[2023-04-21] MEDS: MORPHINE 2 MG SYG IVP PRN ×2 (06:34→21:59)
[2023-04-21] MEDS ORDERED: GLUCAGON 1MG KIT 1 MG ML IM PRN (07:00)
[2023-04-21] MEDS ORDERED: DEXTROSE 50%-WATER 50 ML DISP.SYRIN IV PRN (07:00)
[2023-04-21] MEDS: SODIUM BICARBONATE 650 MG TAB PO SCH ×3 (09:01→21:09)
[2023-04-21] MEDS: THIAMINE HCL 100 MG/ML 2ML VIAL IVP SCH (09:02)
[2023-04-21] MEDS: NA ZIRCON CYCLOSIL(LOKELMA 10GM) PO SCH ×2 (09:02→21:09)
[2023-04-21] MEDS: Vitamin B Complex/Vit C/Folic Acid PO SCH (09:02)
[2023-04-21] MEDS: MIDODRINE HCL 5 MG TABLET PO SCH ×3 (09:02→21:09)
[2023-04-21] MEDS: PANTOPRAZOLE 40MG INJ 80 MG in 0.9%NACL 100ML 100 ML IVP SCH ×2 (09:04→18:21)
[2023-04-21] MEDS: MEROPENEM 1 GM/NS 100 CRCL 26-50 IV SCH ×4 (10:19→23:52)
[2023-04-21 12:06] LABS: HEMATOCRIT 24.3 % (42-54)
[2023-04-21 12:20] LABS: INR 2.88 (0.85-1.15); PROTHROMBIN TIME 31.2 SEC (9.6-11.6)
[2023-04-21 12:22] LABS: PARTIAL THROMBOPLASTIN TIME 51.8 SEC (26.3-35.5)
[2023-04-21 12:57] LABS: TOTAL PROTEIN, SERUM 6.1 g/dL (6.0-8.3)
[2023-04-21 13:00] LABS: BILIRUBIN,DIRECT 10.6 mg/dL (0.0-0.3); BILIRUBIN,TOTAL 16.8 mg/dL (0.2-1.0); POTASSIUM 6.1 mmol/L (3.5-5.1)
[2023-04-21] MEDS ORDERED: KAYEXALATE 15GM/60ML PO ONE (13:00)
[2023-04-21] MEDS ORDERED: SODIUM BICARB 8.4% 50ML SYRINGE IVP STA (13:23)
[2023-04-21] MEDS ORDERED: DEXTROSE 50%-WATER 50 ML DISP.SYRIN IV STA (13:23)
[2023-04-21] MEDS ORDERED: INSULIN HUMULIN R 100 UNIT/ML 3ML SQ STA (13:23)
[2023-04-21] MEDS ORDERED: CALCIUM GLUC 1GM/10ML VIAL IV STA (13:23)
[2023-04-21] MEDS ORDERED: SODIUM BICARB 50MEQ 50ML VIAL 50 ML ONE (13:53)
[2023-04-21] MEDS ORDERED: CALCIUM GLUC 1GM 1 GM in 0.9%NACL 100ML 100 ML IV ONE (14:00)
[2023-04-21] MEDS ORDERED: INSULIN HUMULIN R 100 UNIT/ML 3ML IV STA (14:06)
[2023-04-21] MEDS ORDERED: ALBUTEROL 0.083% 2.5 MG/3 ML INH IH ONE (15:30)
[2023-04-21] MEDS ORDERED: FUROSEMIDE 40MG VIAL IV STA (16:43)
[2023-04-21 17:14] LABS: HEMOGLOBIN A1C 4.9 % (4.0-6.0)
[2023-04-21 17:56] LABS: HEMATOCRIT 24.4 % (42-54)
[2023-04-21] MEDS: INSULIN HUMULIN R 100 UNIT/ML 3ML SQ SCH (18:00)
[2023-04-21 18:04] LABS: CREATININE 3.5 mg/dL (0.5-1.5); POTASSIUM 5.7 mmol/L (3.5-5.1)
[2023-04-21] MEDS: ALBUTEROL 0.083% 2.5 MG/3 ML INH IH SCH ×2 (18:15→23:16)
[2023-04-21] MEDS ORDERED: SODIUM BICARB 50MEQ 50ML VIAL IV STA (21:17)
[2023-04-21] MEDS ORDERED: SODIUM BICARB 8.4% 50ML SYRING 150 MEQ in DEXTROSE 5%-WATER 1,000 ML IVP SCH (21:30)
[2023-04-22] VITALS (82 sets, daily range): BP systolic 92–188; BP diastolic 40–98; PULSE 74–117; RESP 8–32; O2SAT 92–99
[2023-04-22] MEDS: DEXTROSE 5 % AND 0.9 % NACL 1,000 ML IV SCH (00:18)
[2023-04-22] MEDS: INSULIN HUMULIN R 100 UNIT/ML 3ML SQ SCH ×4 (00:37→17:34)
[2023-04-22 00:49] LABS: CREATININE 3.4 mg/dL (0.5-1.5)
[2023-04-22] MEDS: SODIUM BICARB 8.4% 50ML SYRING 150 MEQ in 0.9%NACL 1000ML 1,000 ML IVP SCH ×2 (01:33→11:52)
[2023-04-22] MEDS: PANTOPRAZOLE 40MG INJ 80 MG in 0.9%NACL 100ML 100 ML IVP SCH ×3 (03:28→20:23)
[2023-04-22 04:01] LABS: HEMATOCRIT 22.5 % (42-54); MEAN CORPUSCULAR HEMOGLOBIN 32.2 pg (27.0-33.0); MEAN CORPUSCULAR HGB CONC 32.4 g/dL (32.0-36.0); MEAN CORPUSCULAR VOLUME 99.1 fL (79-99); NUCLEATED RED BLOOD CELLS 0.9 % (0.0-0.19); RED BLOOD CELL COUNT(AUTO) 2.27 MIL/uL (4.50-6.20); RED CELL DISTRIBUTION WIDTH 21.8 % (11.0-15.5); WHITE BLOOD COUNT (AUTO) 9.5 K/uL (4.8-10.8)
[2023-04-22 04:16] LABS: PROTHROMBIN TIME 32.4 SEC (9.6-11.6)
[2023-04-22 04:21] LABS: ALBUMIN 2.1 g/dL (3.5-5.0); CREATININE 3.7 mg/dL (0.5-1.5); MAGNESIUM 2.1 mg/dL (1.80-2.40); POTASSIUM 5.3 mmol/L (3.5-5.1); TOTAL PROTEIN, SERUM 6.1 g/dL (6.0-8.3)
[2023-04-22 04:30] LABS: BILIRUBIN,DIRECT 11.1 mg/dL (0.0-0.3)
[2023-04-22] MEDS: ALBUTEROL 0.083% 2.5 MG/3 ML INH IH SCH ×4 (06:27→23:46)
[2023-04-22] MEDS ORDERED: PHENYLEPHRINE HCL 100 MG in 0.9% NACL 250ML 250 ML IV SCH (06:30)
[2023-04-22] MEDS: SODIUM BICARBONATE 650 MG TAB PO SCH ×3 (09:01→20:23)
[2023-04-22] MEDS: MIDODRINE HCL 5 MG TABLET PO SCH ×3 (09:01→20:22)
[2023-04-22] MEDS: THIAMINE HCL 100 MG/ML 2ML VIAL IVP SCH (09:02)
[2023-04-22] MEDS: Vitamin B Complex/Vit C/Folic Acid PO SCH (09:02)
[2023-04-22] MEDS: HYDROMORPHONE 0.5 MG SYG (0.5MG/0.5ML) IVP PRN ×2 (10:08→12:44)
[2023-04-22] MEDS: MEROPENEM 1 GM/NS 100 CRCL 26-50 IV SCH ×4 (10:09→23:53)
[2023-04-22] MEDS: MORPHINE 2 MG SYG IVP PRN (11:51)
[2023-04-22 12:55] LABS: CREATININE 3.2 mg/dL (0.5-1.5); POTASSIUM 4.6 mmol/L (3.5-5.1)
[2023-04-22 13:14] LABS: ABG BASE EXCESS -2.7 mmol/L (-2.0-3.0); ABG HCO3 22.1 mmol/L (21.0-28.0); ABG OXYGEN SATURATION 98.1 % (95.0-99.0); ABG PCO2 38 mmHg (35-48); ABG PH 7.383 (7.35-7.450); CARBON MONOXIDE 1.6; HHb 1.9; PO2, ARTERIAL BG 116.5 mmHg (83.0-108.0)
[2023-04-22] MEDS: LACTULOSE 20 GM/30 ML UDCUP PO SCH ×3 (14:09→20:22)
[2023-04-22] MEDS ORDERED: DIPHENHYDRAMINE HCL 25 MG CAPSULE PO PRN (15:30)
[2023-04-22] MEDS ORDERED: ACETAMINOPHEN 325 MG TAB PO PRN (15:30)
[2023-04-22] MEDS ORDERED: ACETAMINOPHEN 325 MG TAB ONE (15:35)
[2023-04-22] MEDS ORDERED: DIPHENHYDRAMINE HCL 25 MG CAPSULE ONE (15:35)
[2023-04-22] MEDS ORDERED: FUROSEMIDE 40MG VIAL ONE (16:50)
[2023-04-22] MEDS ORDERED: FUROSEMIDE 40MG VIAL IV ONE (17:00)
[2023-04-22 18:33] LABS: CREATININE 3.6 mg/dL (0.5-1.5); POTASSIUM 5.2 mmol/L (3.5-5.1)
[2023-04-22] MEDS: FUROSEMIDE 40MG VIAL IV SCH (20:22)
[2023-04-22] MEDS: OCTREOTIDE ACETATE 1,250 MCG in 0.9% NACL 250ML 250 ML IV SCH (20:38)
[2023-04-23] VITALS (65 sets, daily range): BP systolic 103–132; BP diastolic 48–75; PULSE 70–94; RESP 6–28; O2SAT 94–100
[2023-04-23] MEDS: SODIUM BICARBONATE 650 MG TAB PO SCH ×3 (00:02→20:36)
[2023-04-23] MEDS: SODIUM BICARB 8.4% 50ML SYRING 150 MEQ in 0.9%NACL 1000ML 1,000 ML IVP SCH ×3 (00:04→23:07)
[2023-04-23] MEDS: HYDROMORPHONE 0.5 MG SYG (0.5MG/0.5ML) IVP PRN ×5 (00:52→21:54)
[2023-04-23] MEDS: PANTOPRAZOLE 40MG INJ 80 MG in 0.9%NACL 100ML 100 ML IVP SCH ×3 (04:06→22:01)
[2023-04-23 04:17] LABS: ALBUMIN 2.2 g/dL (3.5-5.0); BILIRUBIN,TOTAL 15.2 mg/dL (0.2-1.0); CREATININE 3.7 mg/dL (0.5-1.5); POTASSIUM 5.1 mmol/L (3.5-5.1); TOTAL PROTEIN, SERUM 6.2 g/dL (6.0-8.3)
[2023-04-23] MEDS: INSULIN HUMULIN R 100 UNIT/ML 3ML SQ SCH ×5 (06:00→23:39)
[2023-04-23] MEDS: ALBUTEROL 0.083% 2.5 MG/3 ML INH IH SCH ×4 (06:42→23:24)
[2023-04-23 07:35] LABS: ABG HCO3 25.7 mmol/L (21.0-28.0); ABG OXYGEN SATURATION 93.3 % (95.0-99.0); ABG PCO2 46 mmHg (35-48); ABG PH 7.369 (7.35-7.450); PO2, ARTERIAL BG 69.2 mmHg (83.0-108.0); VENT MODE, BG NC (ROOM AIR)
[2023-04-23 08:12] LABS: MEAN CORPUSCULAR HEMOGLOBIN 32.4 pg (27.0-33.0); MEAN CORPUSCULAR HGB CONC 32.7 g/dL (32.0-36.0); NUCLEATED RED BLOOD CELLS 0.6 % (0.0-0.19); RED BLOOD CELL COUNT(AUTO) 2.1 MIL/uL (4.50-6.20); RED CELL DISTRIBUTION WIDTH 21.3 % (11.0-15.5); WHITE BLOOD COUNT (AUTO) 7.9 K/uL (4.8-10.8)
[2023-04-23] MEDS: FUROSEMIDE 40MG VIAL IV SCH (08:24)
[2023-04-23] MEDS: MIDODRINE HCL 5 MG TABLET PO SCH ×3 (08:24→20:36)
[2023-04-23] MEDS: THIAMINE HCL 100 MG/ML 2ML VIAL IVP SCH (08:24)
[2023-04-23] MEDS: LACTULOSE 20 GM/30 ML UDCUP PO SCH ×3 (08:24→20:35)
[2023-04-23] MEDS: Vitamin B Complex/Vit C/Folic Acid PO SCH (08:25)
[2023-04-23] MEDS: MORPHINE 2 MG SYG IVP PRN (08:26)
[2023-04-23 08:59] LABS: HEMATOCRIT 20.8 % (42-54)
[2023-04-23] MEDS: MEROPENEM 1 GM/NS 100 CRCL 26-50 IV SCH ×4 (09:06→21:55)
[2023-04-23 09:45] LABS: INR 2.69 (0.85-1.15); PROTHROMBIN TIME 29.2 SEC (9.6-11.6)
[2023-04-23] MEDS: HYDROXYZINE 25 MG TABLET PO PRN (18:29)
[2023-04-23] MEDS: ONDANSETRON 4MG INJ IV PRN (19:36)
[2023-04-24] VITALS (54 sets, daily range): BP systolic 105–154; BP diastolic 52–107; PULSE 86–95; RESP 5–30; O2SAT 94–100
[2023-04-24] MEDS ORDERED: HYDROMORPHONE 0.5 MG SYG (0.5MG/0.5ML) IVP ONE (02:30)
[2023-04-24 04:13] LABS: BASOPHILS # (AUTO) 0.02 K/uL (0.00-0.20); BASOPHILS % (AUTO) 0.2 % (0.0-5.0); EOSINOPHILS # (AUTO) 0.08 K/uL (0.00-0.70); EOSINOPHILS % (AUTO) 0.8 % (0.0-8.0); HEMATOCRIT 24.2 % (42-54); IMMATURE GRANULOCYTE ABSOLUTE 0.53 K/uL (0-1); LYMPHOCYTES # (AUTO) 0.6 K/uL (1.0-4.8); LYMPHOCYTES % (AUTO) 5.8 % (21.0-51.0); MEAN CORPUSCULAR HEMOGLOBIN 31.8 pg (27.0-33.0); MEAN CORPUSCULAR HGB CONC 33.5 g/dL (32.0-36.0); MEAN CORPUSCULAR VOLUME 94.9 fL (79-99); MONOCYTES # (AUTO) 0.4 K/uL (0.1-1.0); MONOCYTES % (AUTO) 3.4 % (3.0-13.0); NEUTROPHILS # (AUTO) 8.8 K/uL (1.8-7.7); NEUTROPHILS % (AUTO) 84.7 % (40.0-77.0); NUCLEATED RED BLOOD CELLS 0.5 % (0.0-0.19); PLATELET COUNT (AUTO) 23 K/uL (130-400); RED BLOOD CELL COUNT(AUTO) 2.55 MIL/uL (4.50-6.20); RED CELL DISTRIBUTION WIDTH 21.9 % (11.0-15.5); WHITE BLOOD COUNT (AUTO) 10.4 K/uL (4.8-10.8)
[2023-04-24 04:26] LABS: BILIRUBIN,TOTAL 14.8 mg/dL (0.2-1.0); CREATININE 2.9 mg/dL (0.5-1.5); POTASSIUM 4.5 mmol/L (3.5-5.1); TOTAL PROTEIN, SERUM 6.2 g/dL (6.0-8.3)
[2023-04-24 04:29] LABS: INR 2.49 (0.85-1.15); PROTHROMBIN TIME 27.2 SEC (9.6-11.6)
[2023-04-24 04:30] LABS: PARTIAL THROMBOPLASTIN TIME 43.9 SEC (26.3-35.5)
[2023-04-24] MEDS: INSULIN HUMULIN R 100 UNIT/ML 3ML SQ SCH ×3 (06:00→17:06)
[2023-04-24] MEDS: ALBUTEROL 0.083% 2.5 MG/3 ML INH IH SCH ×2 (06:28→11:17)
[2023-04-24] MEDS: HYDROMORPHONE 0.5 MG SYG (0.5MG/0.5ML) IVP PRN ×3 (07:09→16:38)
[2023-04-24 07:32] LABS: ABG BASE EXCESS -1.4 mmol/L (-2.0-3.0); ABG HCO3 23.5 mmol/L (21.0-28.0); ABG OXYGEN SATURATION 95.9 % (95.0-99.0); ABG PCO2 40 mmHg (35-48); ABG PH 7.384 (7.35-7.450); PO2, ARTERIAL BG 81.4 mmHg (83.0-108.0); VENT MODE, BG BIPAP 14 6 (ROOM AIR)
[2023-04-24] MEDS: MIDODRINE HCL 5 MG TABLET PO SCH ×2 (08:32→13:44)
[2023-04-24] MEDS: Vitamin B Complex/Vit C/Folic Acid PO SCH (08:33)
[2023-04-24] MEDS: THIAMINE HCL 100 MG/ML 2ML VIAL IVP SCH (08:33)
[2023-04-24] MEDS: SODIUM BICARBONATE 650 MG TAB PO SCH ×2 (08:33→13:44)
[2023-04-24] MEDS: LACTULOSE 20 GM/30 ML UDCUP PO SCH ×2 (08:33→13:44)
[2023-04-24] MEDS ORDERED: FUROSEMIDE 40MG VIAL IV SCH ×2 (09:00→21:00)
[2023-04-24] MEDS: MEROPENEM 1 GM/NS 100 CRCL 26-50 IV SCH ×2 (09:00)
[2023-04-24] MEDS: SODIUM BICARB 8.4% 50ML SYRING 150 MEQ in 0.9%NACL 1000ML 1,000 ML IVP SCH (09:14)
[2023-04-24] MEDS: HYDROXYZINE 25 MG TABLET PO PRN (15:16)
[2023-04-24] MEDS: PANTOPRAZOLE 40MG INJ 80 MG in 0.9%NACL 100ML 100 ML IVP SCH (15:24)
[2023-04-24] MEDS ORDERED: HYDROCODONE/ACETAMINOPHEN 7.5/325 MG TAB PO ONE (15:30)
== END 2023-04-24 18:18 | disposition left against medical advice (07) | DRG 871 ==
LOC: EDH 07:13 → EDHIP 07:14 → 2AH 23:40 → 2CH 04-20 12:37
PROVIDERS: ADMIT Internal Medicine; ATTEND Internal Medicine
PROC: 30233N1 Transfusion of Nonautologous Red Blood Cells into Peripheral Vein, Percutaneous Approach (ICD-10-PCS; 2023-04-20)
PROC: 5A09357 Assistance with Respiratory Ventilation, Less than 24 Consecutive Hours, Continuous Positive Airway Pressure (ICD-10-PCS; principal; 2023-04-22)
PROC: 5A09357 Assistance with Respiratory Ventilation, Less than 24 Consecutive Hours, Continuous Positive Airway Pressure (ICD-10-PCS; 2023-04-23)
PROC: 5A09357 Assistance with Respiratory Ventilation, Less than 24 Consecutive Hours, Continuous Positive Airway Pressure (ICD-10-PCS; 2023-04-24)
DX: A41.89 Other specified sepsis (principal); E43 Unspecified severe protein-calorie malnutrition; G93.41 Metabolic encephalopathy; K76.7 Hepatorenal syndrome; K65.2 Spontaneous bacterial peritonitis; J18.9 Pneumonia, unspecified organism; R65.21 Severe sepsis with septic shock; N17.9 Acute kidney failure, unspecified; D62 Acute posthemorrhagic anemia; D68.9 Coagulation defect, unspecified; E87.1 Hypo-osmolality and hyponatremia; E87.20 Acidosis, unspecified; Z16.24 Resistance to multiple antibiotics; N30.00 Acute cystitis without hematuria; J90 Pleural effusion, not elsewhere classified; D61.818 Other pancytopenia; J98.11 Atelectasis; Z66 Do not resuscitate; Z20.822 Contact with and (suspected) exposure to COVID-19; I13.10 Hypertensive heart and chronic kidney disease without heart failure, with stage 1 through stage 4 chronic kidney disease, or unspecified chronic kidney disease; N18.9 Chronic kidney disease, unspecified; K70.40 Alcoholic hepatic failure without coma; E87.5 Hyperkalemia; D69.6 Thrombocytopenia, unspecified; K70.31 Alcoholic cirrhosis of liver with ascites; Z53.29 Procedure and treatment not carried out because of patient's decision for other reasons; D64.9 Anemia, unspecified; E87.70 Fluid overload, unspecified; E83.42 Hypomagnesemia; E66.9 Obesity, unspecified; D50.9 Iron deficiency anemia, unspecified; D63.8 Anemia in other chronic diseases classified elsewhere; R16.1 Splenomegaly, not elsewhere classified; R60.0 Localized edema; B96.1 Klebsiella pneumoniae [K. pneumoniae] as the cause of diseases classified elsewhere; E86.9 Volume depletion, unspecified; G47.00 Insomnia, unspecified; R09.89 Other specified symptoms and signs involving the circulatory and respiratory systems; F14.10 Cocaine abuse, uncomplicated; Z74.01 Bed confinement status; Z68.33 Body mass index [BMI] 33.0-33.9, adult
CPT/HCPCS: 36415; 36430; 36600; 71045; 71250; 74176; 76700; 76705; 80048; 80053; 80074; 80076; 80305; 81001; 82140; 82306; 82435; 82550; 82728; 82803; 82947; 82948; 83036; 83540; 83550; 83605; 83735; 83880; 84100; 84132; 84207; 84295; 84443; 84550; 85014; 85018; 85025; 85027; 85049; 85610; 85651; 85730; 86140; 86850; 86900; 86901; 86923; 86927; 87040; 87077; 87088; 87186; 87635; 87804; 93306; 93356; 93970; 94640; 94660; 94664; 97039; C1751; C1894; C9113; G0378; J0610; J1170; J1200; J1815; J1940; J2185; J2270; J2354; J2405; J2543; J2920; J3411; J3430; J3490; J7030; J7050; J7070; J7120; P9016; P9017; P9034; P9047; Q0163